=== PATIENT | male | born 1955 | race Caucasian/White ===

== ENCOUNTER 2020-11-20 07:15 | Outpatient (REF) | payer MEDICARE, SELFPAY ==
[2020-11-20 07:46] LABS: MANUAL DIFF FLAG NO
[2020-11-20 07:50] LABS: Basophils Percent Auto 0.5 % (0-2); Eosinophils Absolute Auto 0.2 X10*3/uL (0.0-0.4); Eosinophils Percent Auto 1.8 % (0-4); Hematocrit 45.8 % (42-52); Hemoglobin 15.2 g/dl (14.0-18.0); Imm Gran Abs Auto 0.03 X10*3/uL (0.00-0.03); Imm Gran Pct Auto 0.4 % (0.0-0.4); Lymphocytes Percent Auto 24.1 % (20-40); Mean Corpuscular HGB Conc 33.2 g/dl (31.0-36.0); Mean Corpuscular Hemoglobin 31.1 pg (27.0-33.0); Mean Corpuscular Volume 93.9 fL (80-98); Mean Platelet Volume 10.1 fL (9.4-12.4); Monocytes Absolute Auto 0.7 X10*3/uL (0.1-1.2); Monocytes Percent Auto 8.7 % (2-11); Neutrophils Absolute Auto 5.3 X10*3/uL (2.0-8.3); Neutrophils Percent Auto 64.5 % (45-73); Platelet Count 182 X10*3/uL (160-400); Red Blood Count 4.88 X10*6/uL (4.60-5.80); Red Cell Distribution Width 12.3 % (11.0-16.0); White Blood Count 8.3 X10*3/uL (4.8-10.8)
[2020-11-20 08:12] LABS: Alanine Aminotransferase 27 U/L (0-40); Albumin Level 4.3 g/dL (3.5-5.0); Alkaline Phosphatase 68 U/L (39-117); Anion Gap 12 (12-20); Aspartate Amino Transferase 25 U/L (5-37); Bilirubin Total 1.5 mg/dL (0.0-1.0); Blood Urea Nitrogen 20 mg/dL (9-16); Calcium 8.9 mg/dL (8.4-10.2); Carbon Dioxide 24 mmol/L (22-29); Chloride 107 mmol/L (96-108); Cholesterol 79 mg/dL; Estimated Glomerular Filt Rate > 60; Glucose Fasting 126 mg/dL (60-99); HDL Cholesterol 29 mg/dL; LDL Cholesterol Calculated 39 mg/dl; Potassium 4.3 mmol/l (3.3-5.1); Sodium 139 mmol/L (135-145); Total Protein 6.8 g/dL (6.5-8.0); Triglycerides 58 mg/dL
== END 2020-11-20 07:16 | disposition home or self-care (01) ==
LOC: HO.LAB 07:15
PROVIDERS: PCP Internal Medicine; Visit Provider Internal Medicine
DX: Z00.00 Encounter for general adult medical examination without abnormal findings (principal); E11.9 Type 2 diabetes mellitus without complications
CPT/HCPCS: 36415; 80053; 80061; 85025

== ENCOUNTER 2021-01-28 06:22 | Day surgery (SDC) | payer MEDICARE, SELFPAY ==
[2021-01-21 14:32] VITALS: BMI 31.4
--- NOTE | 2021-01-27 09:45 | HO.ANESPROP2 ---
Documented by User: Desiree Rodriguez 01/27/21 09:48 HPI - Anesthesia Eval Consult details Narrative: 65yo M for Colonoscopy 2018 CA with Stent. Continues on DAPT Routine cardio visit 10/2020. Stable with 6 month f/u. Pt states exercises regularly. CP only with max HR around 120. PMFSH Active Problems Active Problems: All Active Problems (Updated 01/21/21 @ 14:36 by Karen Kaiser) Hyperlipidemia (Acute) Past Medical History Medical History CAD (coronary artery disease) GERD (gastroesophageal reflux disease) HTN (hypertension) Hx of ulcerative colitis Hyperlipidemia Myocardial infarction On anticoagulant therapy On beta audrey at home Peptic ulcer Family History Family History Mother No problems noted. Father No problems noted. Surgical History Surgical History H/O colonoscopy History of esophagogastroduodenoscopy (EGD) History of PTCA Hx of cystoscopy Hx of heart artery stent Social History Social History Alcohol intake: never Smoking Status: Never smoker Use of substances other than those prescribed or required for medical reasons: No Advance Directives Information Provided: No Meds Allergies Allergy/AdvReac Type Severity Reaction Status Date / Time No Known Allergies Allergy Unknown Verified 11/12/20 10:29 Home Medications Medication Instructions Recorded Confirmed Last Taken Type albuterol sulfate 90 mcg/actuation 2 puff PO DAILY 11/12/20 01/21/21 Unknown History aerosol inhaler aspirin 81 mg tablet,delayed 81 mg PO DAILY 11/12/20 01/28/21 01/27/21 History release carvedilol 12.5 mg tablet 12.5 mg PO BID 11/12/20 01/28/21 01/28/21 05:15 History folic acid 1 mg tablet 1 mg PO DAILY 11/12/20 01/21/21 Unknown History isosorbide mononitrate 30 mg 30 mg PO QAM 11/12/20 01/21/21 Unknown History tablet,extended release 24 hr lisinopril 20 mg tablet 20 mg PO DAILY 11/12/20 01/28/21 01/28/21 05:15 History nitroglycerin 0.4 mg sublingual 0.5 mg SUBLINGUAL ONCE PRN 11/12/20 01/21/21 Unknown History tablet pantoprazole 20 mg tablet,delayed 20 mg PO DAILY 11/12/20 01/21/21 Unknown History release prasugrel 10 mg tablet 10 mg PO DAILY 11/12/20 11/12/20 Unknown History sulfasalazine 500 mg tablet 1,000 mg PO BID 11/12/20 01/21/21 Unknown History clopidogrel 1 tab PO DAILY 01/21/21 01/28/21 01/21/21 History Exam Exam Date and Time: January 27, 2021 0945 Height,Weight and Vital Signs: Height 5 ft 8 in Weight 93.894 kg Pertinent Lab Results Pertinent Lab Results: Laboratory Tests 11/20/20 11/20/20 07:35 07:35 WBC 8.3 Hgb 15.2 Hct 45.8 Plt Count 182 Sodium 139 Potassium 4.3 Chloride 107 Carbon Dioxide 24 BUN 20 H Creatinine 1.16 Narrative Narrative: EKG 10/2020 NSR, no T wave abn Assessment and Plan Assessment Anesthesia Assessment: Chart Reviewed Documented by User: Trisha Tay 01/28/21 07:39 [facility] Past Medical History Medical History CAD (coronary artery disease) GERD (gastroesophageal reflux disease) HTN (hypertension) Hx of ulcerative colitis Hyperlipidemia Myocardial infarction On anticoagulant therapy On beta audrey at home Peptic ulcer Family History Family History Mother No problems noted. Father No problems noted. Surgical History Surgical History H/O colonoscopy History of esophagogastroduodenoscopy (EGD) History of PTCA Hx of cystoscopy Hx of heart artery stent Social History Social History Alcohol intake: never Smoking Status: Never smoker Use of substances other than those prescribed or required for medical reasons: No Advance Directives Information Provided: No Meds Allergies Allergy/AdvReac Type Severity Reaction Status Date / Time No Known Allergies Allergy Unknown Verified 11/12/20 10:29 Home Medications Medication Instructions Recorded Confirmed Last Taken Type albuterol sulfate 90 mcg/actuation 2 puff PO DAILY 11/12/20 01/21/21 Unknown History aerosol inhaler aspirin 81 mg tablet,delayed 81 mg PO DAILY 11/12/20 01/28/21 01/27/21 History release carvedilol 12.5 mg tablet 12.5 mg PO BID 11/12/20 01/28/21 01/28/21 05:15 History folic acid 1 mg tablet 1 mg PO DAILY 11/12/20 01/21/21 Unknown History isosorbide mononitrate 30 mg 30 mg PO QAM 11/12/20 01/21/21 Unknown History tablet,extended release 24 hr lisinopril 20 mg tablet 20 mg PO DAILY 11/12/20 01/28/21 01/28/21 05:15 History nitroglycerin 0.4 mg sublingual 0.5 mg SUBLINGUAL ONCE PRN 11/12/20 01/21/21 Unknown History tablet pantoprazole 20 mg tablet,delayed 20 mg PO DAILY 11/12/20 01/21/21 Unknown History release prasugrel 10 mg tablet 10 mg PO DAILY 11/12/20 11/12/20 Unknown History sulfasalazine 500 mg tablet 1,000 mg PO BID 11/12/20 01/21/21 Unknown History clopidogrel 1 tab PO DAILY 01/21/21 01/28/21 01/21/21 History Exam Airway Mallampati Class: II TM Dist: >3cm Neck ROM: Full Loose/Missing/Broken Teeth: No Heart: RRR Lungs: CTA Assessment and Plan Assessment Anesthesia Assessment: Anesthesia Plan Discussed and Chart Reviewed Final Anesthetic Review NPO: Yes ASA Class: III Final Preanesthetic Review: Meds/Allgs Chart Reviewed, Consent Obtained/Reviewed and Anes Risks/Benef Reviewed Patient Risk: Intermediate Procedure Risk: Low Anesthetic Plan Anesthetic Plan: MAC: Disposition: Standard PACU
[2021-01-28 06:38] VITALS: BP 111/68; PULSE 74; RESP 18; O2SAT 95
--- NOTE | 2021-01-28 07:28 | MHC.SHP ---
Pre-Procedural Eval Section A The patient is an INPATIENT: No The History & Physical has been completed within 30 days and I have reviewed it.: Yes Section B Chief Complaint: colitis Allergies: Allergies Allergy/AdvReac Type Severity Reaction Status Date / Time No Known Allergies Allergy Unknown Verified 11/12/20 10:29 Plan I have reviewed the history and physical and performed a pertinent physical examination on my patient. No changes have occurred unless specified.
[2021-01-28] MEDS: Lactated Ringers 1,000 ML 50 ML IV (07:34)
[2021-01-28 08:11] VITALS: BP 97/56; PULSE 67; RESP 20; TEMP 36.5; O2SAT 98
--- NOTE | 2021-01-28 08:16 | PM.OP ---
Brief Operative Note Date of Service: 01/28/21 Pre-op diagnosis: u c Post-op diagnosis: same Surgeon: Mitesh Pierce Anesthesia: MAC Estimated blood loss (mL): 5 Pathology: other (biopsies ti and colon) Condition: stable Disposition: PACU
[2021-01-28 08:25] VITALS: BP 111/69; PULSE 77; RESP 18; O2SAT 95
[2021-01-28 08:33] VITALS: BP 103/61; PULSE 68; RESP 18; O2SAT 96
--- NOTE | 2021-01-28 09:05 | OP_ITS ---
SURGEON: Mitesh Pierce MD INDICATIONS: Ulcerative colitis. PREOPERATIVE DIAGNOSIS: POSTOPERATIVE DIAGNOSIS: PROCEDURE PERFORMED: ESTIMATED BLOOD LOSS: COMPLICATIONS: ANESTHESIA: ASSISTANTS: SPECIMENS: PROCEDURE: Colonoscopy to the terminal ileum with biopsy. MEDICATIONS: Monitored anesthesia care. DESCRIPTION OF PROCEDURE: History and physical performed. The risks and benefits of the procedure were explained to the patient. Informed consent was obtained. The patient was placed in left lateral decubitus position. A digital rectal exam was performed and was found to be normal. The Olympus pediatric video colonoscope was introduced into the rectum and advanced to the cecum without difficulty. The cecum was identified by transillumination, palpation, and identification of ileocecal valve. Examination was performed. The scope was removed. He tolerated the procedure well and was taken to recovery area in stable condition. FINDINGS: The terminal ileum was normal. The visualized colonic mucosa was normal. The quality of prep was good. There appeared to be some mild chronic changes in the rectum consistent with previous ulcerative colitis. There was no active colitis. Biopsies were obtained beginning in the cecum and extending approximately every 10 cm throughout the colon. Retroflexed examination was normal. IMPRESSION: Ulcerative colitis. RECOMMENDATION: Follow up the biopsy results. MD JUDY Barth/TEOFILO / [id number]
== END 2021-01-28 09:20 | disposition home or self-care (01) ==
PROVIDERS: PCP Internal Medicine; Visit Provider Internal Medicine Gastroenterology
PROC: 0DJD8ZZ Inspection of Lower Intestinal Tract, Via Natural or Artificial Opening Endoscopic (ICD-10-PCS; CPT 45378; principal; 2021-01-28 07:30)
DX: K51.80 Other ulcerative colitis without complications (principal); Z83.71 Family history of colonic polyps; K21.9 Gastro-esophageal reflux disease without esophagitis; K27.9 Peptic ulcer, site unspecified, unspecified as acute or chronic, without hemorrhage or perforation; I10 Essential (primary) hypertension; I25.10 Atherosclerotic heart disease of native coronary artery without angina pectoris; Z98.61 Coronary angioplasty status; Z79.01 Long term (current) use of anticoagulants; Z79.899 Other long term (current) drug therapy; Z79.82 Long term (current) use of aspirin; Z87.442 Personal history of urinary calculi
CPT/HCPCS: 45380; 88305; J2370

== ENCOUNTER 2021-05-13 07:45 | Outpatient (REF) | payer MEDICARE, SELFPAY ==
[2021-05-13 08:45] LABS: Alanine Aminotransferase 19 U/L (0-40); Albumin Level 4.3 g/dL (3.5-5.0); Alkaline Phosphatase 76 U/L (39-117); Anion Gap 13 (12-20); Aspartate Amino Transferase 19 U/L (5-37); Bilirubin Total 1.7 mg/dL (0.0-1.0); Blood Urea Nitrogen 17 mg/dL (9-16); Calcium 9.7 mg/dL (8.4-10.2); Carbon Dioxide 25 mmol/L (22-29); Chloride 105 mmol/L (96-108); Estimated Glomerular Filt Rate 59; Glucose Fasting 120 mg/dL (60-99); Potassium 4.1 mmol/L (3.3-5.1); Sodium 139 mmol/L (135-145); Total Protein 7.1 g/dL (6.5-8.0)
[2021-05-13 09:07] LABS: Prostate Specific Antigen 0.43 ng/mL (<0.05-4.0)
== END 2021-05-13 07:46 | disposition home or self-care (01) ==
LOC: HO.LAB 07:45
PROVIDERS: Absent Provider Internal Medicine Cardiovascular Disease; PCP Internal Medicine; Visit Provider Nurse Practitioner Family
DX: Z12.5 Encounter for screening for malignant neoplasm of prostate (principal); Z13.1 Encounter for screening for diabetes mellitus
CPT/HCPCS: 36415; 80053; 84153

== ENCOUNTER 2021-11-09 09:06 | Outpatient (REF) | payer MEDICARE, SELFPAY ==
[2021-11-09 09:21] LABS: MANUAL DIFF FLAG NO
[2021-11-09 09:35] LABS: Basophils Percent Auto 0.5 % (0-2); Eosinophils Absolute Auto 0.1 X10*3/uL (0.0-0.4); Eosinophils Percent Auto 1.3 % (0-4); Hematocrit 49.3 % (42.0-52.0); Hemoglobin 16.5 g/dl (14.0-18.0); Imm Gran Abs Auto 0.04 X10*3/uL (0.00-0.03); Imm Gran Pct Auto 0.5 % (0.0-0.4); Lymphocytes Absolute Auto 2.1 X10*3/uL (1.2-4.9); Lymphocytes Percent Auto 25.3 % (20-40); Mean Corpuscular HGB Conc 33.5 g/dl (31.0-36.0); Mean Corpuscular Hemoglobin 31.3 pg (27.0-33.0); Mean Corpuscular Volume 93.4 fL (80.0-98.0); Mean Platelet Volume 9.8 fL (9.4-12.4); Monocytes Absolute Auto 0.6 X10*3/uL (0.1-1.2); Monocytes Percent Auto 7.6 % (2-11); Neutrophils Absolute Auto 5.3 x10*3/uL (2.0-8.3); Neutrophils Percent Auto 64.8 % (45-73); Platelet Count 225 X10*3/uL (160-400); Red Blood Count 5.28 X10*6/uL (4.60-5.80); Red Cell Distribution Width 12.5 % (11.0-16.0); White Blood Count 8.3 X10*3/uL (4.8-10.8)
[2021-11-09 10:02] LABS: Alanine Aminotransferase 31 U/L (0-40); Albumin Level 4.5 g/dL (3.5-5.0); Alkaline Phosphatase 74 U/L (39-117); Anion Gap 11 (12-20); Aspartate Amino Transferase 27 U/L (5-37); Bilirubin Total 1.6 mg/dL (0.0-1.0); Blood Urea Nitrogen 18 mg/dL (9-16); Calcium 9.9 mg/dL (8.4-10.2); Carbon Dioxide 27 mmol/L (22-29); Chloride 106 mmol/L (96-108); Cholesterol 104 mg/dL; Estimated Glomerular Filt Rate > 60; Glucose Fasting 115 mg/dL (60-99); HDL Cholesterol 31 mg/dL; LDL Cholesterol Calculated 54 mg/dl; Potassium 4.3 mmol/L (3.3-5.1); Sodium 140 mmol/L (135-145); Total Protein 7.6 g/dL (6.5-8.0); Triglycerides 96 mg/dL
== END 2021-11-09 09:07 | disposition home or self-care (01) ==
LOC: HO.LAB 09:06
PROVIDERS: PCP Internal Medicine; Visit Provider Internal Medicine
DX: Z00.00 Encounter for general adult medical examination without abnormal findings (principal); Z13.0 Encounter for screening for diseases of the blood and blood-forming organs and certain disorders involving the immune mechanism
CPT/HCPCS: 36415; 80053; 80061; 85025

== ENCOUNTER 2022-06-06 08:29 | Outpatient (REF) | payer MEDICARE, SELFPAY ==
[2022-06-06 08:45] LABS: MANUAL DIFF FLAG NO
[2022-06-06 09:01] LABS: Basophils Absolute Auto 0.1 X10*3/uL (0.0-0.2); Basophils Percent Auto 0.6 % (0-2); Eosinophils Absolute Auto 0.1 X10*3/uL (0.0-0.4); Eosinophils Percent Auto 0.9 % (0-4); Hematocrit 45.6 % (42.0-52.0); Hemoglobin 15.1 g/dl (14.0-18.0); Imm Gran Abs Auto 0.05 X10*3/uL (0.00-0.03); Imm Gran Pct Auto 0.6 % (0.0-0.4); Lymphocytes Absolute Auto 1.8 X10*3/uL (1.2-4.9); Lymphocytes Percent Auto 22.3 % (20-40); Mean Corpuscular HGB Conc 33.1 g/dl (31.0-36.0); Mean Corpuscular Hemoglobin 31.4 pg (27.0-33.0); Mean Corpuscular Volume 94.8 fL (80.0-98.0); Mean Platelet Volume 10.1 fL (9.4-12.4); Monocytes Absolute Auto 0.7 X10*3/uL (0.1-1.2); Monocytes Percent Auto 8.4 % (2-11); Neutrophils Absolute Auto 5.3 x10*3/uL (2.0-8.3); Neutrophils Percent Auto 67.2 % (45-73); Platelet Count 222 X10*3/uL (160-400); Red Blood Count 4.81 X10*6/uL (4.60-5.80); Red Cell Distribution Width 13.3 % (11.0-16.0); White Blood Count 7.9 X10*3/uL (4.8-10.8)
[2022-06-06 09:32] LABS: Alanine Aminotransferase 43 U/L (0-40); Albumin Level 4.4 g/dL (3.5-5.0); Alkaline Phosphatase 76 U/L (39-117); Anion Gap 15 (12-20); Aspartate Amino Transferase 35 U/L (5-37); Bilirubin Total 1.7 mg/dL (0.0-1.0); Blood Urea Nitrogen 17 mg/dL (9-16); Calcium 9.1 mg/dL (8.4-10.2); Carbon Dioxide 22 mmol/L (22-29); Chloride 105 mmol/L (96-108); Cholesterol 92 mg/dL; Estimated Glomerular Filt Rate > 60; Glucose Fasting 117 mg/dL (60-99); HDL Cholesterol 30 mg/dL; LDL Cholesterol Calculated 48 mg/dl; Potassium 4.4 mmol/L (3.3-5.1); Sodium 138 mmol/L (135-145); Triglycerides 71 mg/dL
== END 2022-06-06 08:30 | disposition home or self-care (01) ==
LOC: HO.LAB 08:29
PROVIDERS: PCP Internal Medicine; Visit Provider Internal Medicine
DX: Z13.0 Encounter for screening for diseases of the blood and blood-forming organs and certain disorders involving the immune mechanism (principal); E78.5 Hyperlipidemia, unspecified; I10 Essential (primary) hypertension
CPT/HCPCS: 36415; 80053; 80061; 85025

== ENCOUNTER 2022-11-08 09:02 | Outpatient (REF) | payer MEDICARE, SELFPAY ==
[2022-11-08 09:17] LABS: MANUAL DIFF FLAG NO
[2022-11-08 09:45] LABS: Basophils Absolute Auto 0.1 X10*3/uL (0.0-0.2); Basophils Percent Auto 0.6 % (0-2); Eosinophils Absolute Auto 0.1 X10*3/uL (0.0-0.4); Eosinophils Percent Auto 1.6 % (0-4); Hematocrit 47.1 % (42.0-52.0); Hemoglobin 15.6 g/dl (14.0-18.0); Imm Gran Abs Auto 0.05 X10*3/uL (0.00-0.03); Imm Gran Pct Auto 0.6 % (0.0-0.4); Lymphocytes Absolute Auto 2.2 X10*3/uL (1.2-4.9); Mean Corpuscular HGB Conc 33.1 g/dl (31.0-36.0); Mean Corpuscular Hemoglobin 31.1 pg (27.0-33.0); Mean Corpuscular Volume 93.8 fL (80.0-98.0); Mean Platelet Volume 10.2 fL (9.4-12.4); Monocytes Absolute Auto 0.8 X10*3/uL (0.1-1.2); Monocytes Percent Auto 8.9 % (2-11); Neutrophils Absolute Auto 5.6 x10*3/uL (2.0-8.3); Neutrophils Percent Auto 63.3 % (45-73); Platelet Count 181 X10*3/uL (160-400); Red Blood Count 5.02 X10*6/uL (4.60-5.80); Red Cell Distribution Width 12.9 % (11.0-16.0); White Blood Count 8.8 X10*3/uL (4.8-10.8)
[2022-11-08 10:07] LABS: Alanine Aminotransferase 29 U/L (0-40); Albumin Level 4.3 g/dL (3.5-5.0); Alkaline Phosphatase 76 U/L (39-117); Anion Gap 8 (12-20); Aspartate Amino Transferase 25 U/L (5-37); Bilirubin Total 1.8 mg/dL (0.0-1.0); Blood Urea Nitrogen 22 mg/dL (9-16); Calcium 9.3 mg/dL (8.4-10.2); Carbon Dioxide 27 mmol/L (22-29); Chloride 106 mmol/L (96-108); Cholesterol 111 mg/dL; Estimated Glomerular Filt Rate > 60; Glucose Fasting 108 mg/dL (60-99); HDL Cholesterol 31 mg/dL; LDL Cholesterol Calculated 62 mg/dl; Potassium 4.3 mmol/L (3.3-5.1); Sodium 137 mmol/L (135-145); Total Protein 6.9 g/dL (6.5-8.0); Triglycerides 93 mg/dL
== END 2022-11-08 09:03 | disposition home or self-care (01) ==
LOC: HO.LAB 09:02
PROVIDERS: PCP Internal Medicine; Visit Provider Internal Medicine
DX: N28.9 Disorder of kidney and ureter, unspecified (principal); D64.9 Anemia, unspecified; E78.5 Hyperlipidemia, unspecified
CPT/HCPCS: 36415; 80053; 80061; 85025

== ENCOUNTER 2023-05-16 08:35 | Outpatient (AMB) | payer MEDICARE, SELFPAY ==
[2023-05-16 08:36] VITALS: BP 112/80; PULSE 71; O2SAT 96; BMI 31.9
--- NOTE | 2023-05-16 08:36 | A.OFFPC_ITS ---
Vital Signs 05/16/23 08:36 Height 5 ft 8 in Weight 210 lb BMI 31.9 BP 112/80 Blood Pressure Location Lt brachial Position Sitting Pulse 71 Pulse Source Pulse Oximeter Pulse Oximetry (%) 96 Oxygen Delivery Method Room Air Intake Visit Reasons: 6mth f/u [employer] Cartoonist Required: No Accompanied by: Self / Same As Patient Allergies No Known Allergies Allergy (Unknown, Verified 05/16/23 08:37) Medication List - Last Reconciled 05/16/23 by Eric Arita MD albuterol sulfate 90 mcg/actuation 2 puffs PO DAILY aspirin 81 mg PO DAILY atorvastatin 80 mg PO DAILY benzonatate 100 mg PO TID PRN carvedilol 12.5 mg PO BID clopidogrel 1 tab PO DAILY folic acid 1 mg PO DAILY isosorbide mononitrate ER 30 mg PO QAM lisinopril 20 mg PO DAILY nitroglycerin 0.5 mg sublingual ONCE PRN pantoprazole 20 mg PO DAILY sulfasalazine 1,000 mg PO BID Tobacco use date assessed: 05/16/23 Fall risk assessment: No Falls in past year Last assessed Fall Risk: 05/16/23 Dental Screening Dental Screen Date: 05/16/23 Did you have a dental visit in the last 12 months?: Yes Did you have a dental problem in the last 6 months where you did not have access to dental care?: No Was dental information given to patient?: Patient has dentist HPI 6mth f/u HPI Details HTN CAD and hyperlipidemia; doing well; compliant [facility] Medical History (Updated 11/08/22 @ 08:57 by Eric Arita MD) CAD (coronary artery disease) Chronic pain of both feet GERD (gastroesophageal reflux disease) HTN (hypertension) Hx of ulcerative colitis Hyperlipidemia Myocardial infarction On anticoagulant therapy On beta audrey at home Peptic ulcer Screening for diabetes mellitus Screening for prostate cancer Surgical History H/O colonoscopy History of esophagogastroduodenoscopy (EGD) History of PTCA Hx of cystoscopy Hx of heart artery stent Family History Mother No problems noted. Father No problems noted. Social History Housing: House Alcohol intake: never Patient Tobacco Use Status: Never used Tobacco e-Cigarette/Vaping Use: Never Used Second Hand Smoke Exposure: No Current occupational status: retired Cognitive needs: No Hearing needs: No Vision needs: No Questionnaire PHQ-9 Over the last 2 weeks, how often have you been bothered by any of the following problems? 1. Little interest or pleasure in doing things: not at all 2. Feeling down, depressed, or hopeless: not at all 3. Trouble falling or staying asleep, or sleeping too much: not at all 4. Feeling tired or having little energy: not at all 5. Poor appetite or overeating: not at all 6. Feeling bad about yourself - or that you are a failure or have let yourself or your family down: not at all 7. Trouble concentrating on things, such as reading the newspaper or watching television: not at all 8. Moving or speaking so slowly that other people could have noticed. Or the opposite - being so fidgety or restless that you have been moving around a lot more than usual: not at all 9. Thoughts that you would be better off or of hurting yourself in some way: not at all Total score: 0 Depression Screening Interpretation: Negative 30802 - PHQ-9 Billing: Yes Source: Developed by Drs. Aman Forde, Adelina Porter, Tyler Garvey and colleagues, with an educational lorena from [employer]. Thrive Questionnaire Date Thrive assessed: 05/16/23 I am a: Patient What is your living situation today?: I have a steady place to live Within the past 12 months, did the food you bought not last and you didn't have the money to get more?: Never true Within the past 12 months, did you worry whether your food would run out before you got money to buy more?: Never true Do you have trouble paying for medicines?: No Do you have trouble getting transportation to medical appointments?: No Do you have trouble paying your heating and electricity bill?: No Do you have trouble taking care of your child, family member or friend?: No Do you have trouble with day-to-day activities such as bathing, preparing meals, shopping, managing finances, etc.?: No Are you currently unemployed and looking for a job?: No Are you interested in more education?: No Please select the resources that you would like help with: None Currently or been in a relationship where the following occur: no concerns reported AUDIT C Alcohol Use Questionnaire (AUDIT-C) 1. How often do you have a drink containing alcohol?: Monthly or less 2. How many drinks containing alcohol do you have on a typical day when you are drinking?: 1 or 2 3. How often do you have six or more drinks on one occasion?: Never Total Score: 1 Score Reviewed/Action Taken: Yes MANSOOR-7 AMB Questionnaire MANSOOR-7 Date MANSOOR - 7 assessed: 05/16/23 Feeling nervous, anxious, or on edge: 0 = Not at all Not being able to stop or control worryin = Not at all Worrying too much about different things: 0 = Not at all Trouble relaxin = Not at all Being so restless that it is hard to sit still: 0 = Not at all Becoming easily annoyed or irritable: 0 = Not at all Feeling afraid as if something awful might happen: 0 = Not at all Total MANSOOR-7 score (0-4 normal; 5-9 mild; 10-14 moderate; 15-21 severe): 0 Source: Developed by Drs. Aman Forde, Adelina Porter, Tyler Garvey and colleagues, with an educational lorena from [employer]. MANSOOR-7 Assessment Billing MANSOOR-7 Assessment Tool: MANSOOR-7 Assessment 49398 Review of Systems Const Denies chills, Denies headache(s) and Denies weight loss ENT Denies headache(s) Card Denies chest pain, Denies syncope, Denies irregular heart rhythm and Denies dyspnea Resp Denies chest congestion, Denies cough and Denies dyspnea GI Denies abdominal pain, Denies change in stool character, Denies nausea and Denies vomiting Musc Denies deformity and Denies joint swelling Neuro Denies syncope and Denies headache(s) Physical exam (Primary Care) Vital Signs: Last Vital Signs Pulse 71 05/16/23 08:36 BP 112/80 05/16/23 08:36 Pulse Ox 96 05/16/23 08:36 Oxygen Delivery Method Room Air 05/16/23 08:36 BMI result Body Mass Index 31.9 Tobacco/Smoking Status: Tobacco use Status Tobacco use date assessed 05/16/23 05/16/23 08:41 Patient Tobacco Use Status Never used Tobacco 05/16/23 08:41 e-Cigarette/Vaping Use Never Used 05/16/23 08:41 PHQ-9: PHQ-9 Score PHQ-9: Total score 0 05/16/23 08:41 Depression Screening Interpretation: Negative Thrive Assessment: Date of Thrive Assessment Date Thrive assessed 05/16/23 05/16/23 08:41 Currently or been in a relationship where the following occur: no concerns reported Const General: cooperative, comfortable and no acute distress Resp Effort & Inspection: normal respiratory effort Auscultation: clear to auscultation bilaterally Percussion: percussion normal Cardio Jugular venous distension: no JVD Rate: regular rate Rhythm: regular rhythm GI Inspection: Yes normal to inspection Assessment and Plan Assessment & Plan (1) CAD (coronary artery disease): Code(s): I25.10 - Atherosclerotic heart disease of [place] coronary artery without angina pectoris Plan: stable; seescardiology (2) Hypertension: Code(s): I10 - Essential (primary) hypertension Plan: stable; same rx (3) Hyperlipidemia: Code(s): E78.5 - Hyperlipidemia, unspecified Qualifiers: Hyperlipidemia type: unspecified Qualified Code(s): E78.5 - Hyperlipidemia, unspecified Plan: stable; do labs Orders: Orders Comprehensive [place]. Panel Fast Today N28.9 - Disorder of kidney and ureter, unspecified Lipid Panel Today E78.5 - Hyperlipidemia, unspecified Complete Blood Count Auto Diff Today D64.9 - Anemia, unspecified Coding Level of Care Code Est Pt Level 4 (89158) Diagnoses CAD (coronary artery disease) I25.10 Hypertension I10 Hyperlipidemia E78.5 Hyperlipidemia type: unspecified Additional Codes MANSOOR-7 Assessment Billing - MANSOOR-7 Assessment Tool: MANSOOR-7 Assessment 17875 ([id number])
== END 2023-05-16 08:55 | disposition home or self-care (01) ==
PROVIDERS: PCP Internal Medicine; Visit Provider Internal Medicine
DX: I25.10 Atherosclerotic heart disease of native coronary artery without angina pectoris (principal); I10 Essential (primary) hypertension; E78.5 Hyperlipidemia, unspecified
CPT/HCPCS: 99214

== ENCOUNTER 2023-05-16 09:19 | Outpatient (REF) | payer MEDICARE, SELFPAY ==
[2023-05-16 09:41] LABS: MANUAL DIFF FLAG NO
[2023-05-16 10:44] LABS: Basophils Absolute Auto 0.1 X10*3/uL (0.0-0.2); Basophils Percent Auto 0.8 % (0-2); Eosinophils Absolute Auto 0.2 X10*3/uL (0.0-0.4); Hematocrit 47.2 % (42.0-52.0); Hemoglobin 15.6 g/dl (14.0-18.0); Imm Gran Abs Auto 0.04 X10*3/uL (0.00-0.03); Imm Gran Pct Auto 0.5 % (0.0-0.4); Lymphocytes Percent Auto 26.4 % (20-40); Mean Corpuscular HGB Conc 33.1 g/dl (31.0-36.0); Mean Corpuscular Hemoglobin 30.6 pg (27.0-33.0); Mean Corpuscular Volume 92.5 fL (80.0-98.0); Mean Platelet Volume 10.2 fL (9.4-12.4); Monocytes Absolute Auto 0.6 X10*3/uL (0.1-1.2); Monocytes Percent Auto 8.1 % (2-11); Neutrophils Absolute Auto 4.7 x10*3/uL (2.0-8.3); Neutrophils Percent Auto 62.2 % (45-73); Platelet Count 200 X10*3/uL (160-400); Red Cell Distribution Width 12.5 % (11.0-16.0); White Blood Count 7.5 X10*3/uL (4.8-10.8)
[2023-05-16 11:24] LABS: Alanine Aminotransferase 30 U/L (0-40); Albumin Level 4.2 g/dL (3.5-5.0); Alkaline Phosphatase 73 U/L (39-117); Anion Gap 14 (12-20); Aspartate Amino Transferase 26 U/L (5-37); Bilirubin Total 1.9 mg/dL (0.0-1.0); Blood Urea Nitrogen 21 mg/dL (9-16); Calcium 9.4 mg/dL (8.4-10.2); Carbon Dioxide 23 mmol/L (22-29); Chloride 106 mmol/L (96-108); Cholesterol 108 mg/dL; Estimated Glomerular Filt Rate > 60; Glucose Fasting 107 mg/dL (60-99); HDL Cholesterol 32 mg/dL; LDL Cholesterol Calculated 57 mg/dl; Potassium 4.1 mmol/L (3.3-5.1); Sodium 139 mmol/L (135-145); Triglycerides 97 mg/dL
== END 2023-05-16 09:20 | disposition home or self-care (01) ==
LOC: HO.LAB 09:19
PROVIDERS: PCP Internal Medicine; Visit Provider Internal Medicine
DX: N28.9 Disorder of kidney and ureter, unspecified (principal); D64.9 Anemia, unspecified; E78.5 Hyperlipidemia, unspecified
CPT/HCPCS: 36415; 80053; 80061; 85025

== ENCOUNTER 2023-11-21 08:31 | Outpatient (AMB) | payer MEDICARE, SELFPAY ==
[2023-11-21 08:33] VITALS: BP 134/66; PULSE 70; O2SAT 96; BMI 31.5
--- NOTE | 2023-11-21 08:33 | MHC.PC.OV ---
Vital Signs 11/21/23 08:33 Height 5 ft 8 in Weight 207 lb BMI 31.5 BP 134/66 Blood Pressure Location Lt brachial Position Sitting Pulse 70 Pulse Source Pulse Oximeter Pulse Oximetry (%) 96 Oxygen Delivery Method Room Air Intake Visit Reasons: 6mth f/u Laboratory Equipment Cleaner Required: No Gravity Prospecting Operator: Not Required per policy Accompanied by: Self / Same As Patient Allergies No Known Allergies Allergy (Unknown, Verified 11/21/23 08:33) Medication List - Last Reconciled 11/21/23 by Eric Arita MD albuterol sulfate 90 mcg/actuation 2 puffs PO DAILY aspirin 81 mg PO DAILY atorvastatin 80 mg PO DAILY benzonatate 100 mg PO TID PRN carvedilol 25 mg PO BID clopidogrel 1 tab PO DAILY folic acid 1 mg PO DAILY isosorbide mononitrate ER 30 mg PO QAM lisinopril 2.5 mg PO DAILY nitroglycerin 0.5 mg sublingual ONCE PRN pantoprazole 20 mg PO DAILY sulfasalazine 1,000 mg PO BID Tobacco use date assessed: 11/21/23 Fall risk assessment: No Falls in past year Last assessed Fall Risk: 11/21/23 Dental Screening Dental Screen Date: 11/21/23 Did you have a dental visit in the last 12 months?: Yes Did you have a dental problem in the last 6 months where you did not have access to dental care?: No Was dental information given to patient?: Patient has dentist HPI 6mth f/u HPI Details CAD hyperlipidemia and HTN; doing well; compliant; sees cardiology and doing well [facility] Medical History (Updated 11/08/22 @ 08:57 by Eric Arita MD) Chronic pain of both feet Screening for prostate cancer Screening for diabetes mellitus Hx of ulcerative colitis Peptic ulcer GERD (gastroesophageal reflux disease) On beta audrey at home On anticoagulant therapy Myocardial infarction CAD (coronary artery disease) HTN (hypertension) Hyperlipidemia Surgical History Hx of cystoscopy Hx of heart artery stent History of esophagogastroduodenoscopy (EGD) H/O colonoscopy History of PTCA Family History Mother No problems noted. Father No problems noted. Social History Housing: House Alcohol intake: never Patient Tobacco Use Status: Never used Tobacco e-Cigarette/Vaping Use: Never Used Second Hand Smoke Exposure: No Current occupational status: retired Cognitive needs: No Hearing needs: No Vision needs: Yes Questionnaire PHQ-9 Over the last 2 weeks, how often have you been bothered by any of the following problems? 1. Little interest or pleasure in doing things: not at all 2. Feeling down, depressed, or hopeless: not at all 3. Trouble falling or staying asleep, or sleeping too much: not at all 4. Feeling tired or having little energy: not at all 5. Poor appetite or overeating: not at all 6. Feeling bad about yourself - or that you are a failure or have let yourself or your family down: not at all 7. Trouble concentrating on things, such as reading the newspaper or watching television: not at all 8. Moving or speaking so slowly that other people could have noticed. Or the opposite - being so fidgety or restless that you have been moving around a lot more than usual: not at all 9. Thoughts that you would be better off or of hurting yourself in some way: not at all Total score: 0 Depression Screening Interpretation: Negative Depression Screening Done: Yes 70014 - PHQ-9 Billing: Yes Source: Developed by Drs. Aman Forde, Adelina Porter, Tyler Garvey and colleagues, with an educational lorena from [employer]. Thrive Questionnaire Date Thrive assessed: 11/21/23 I am a: Patient What is your living situation today?: I have a steady place to live Within the past 12 months, did the food you bought not last and you didn't have the money to get more?: Never true Within the past 12 months, did you worry whether your food would run out before you got money to buy more?: Never true Do you have trouble paying for medicines?: No Do you have trouble getting transportation to medical appointments?: No Do you have trouble paying your heating and electricity bill?: No Do you have trouble taking care of your child, family member or friend?: No Do you have trouble with day-to-day activities such as bathing, preparing meals, shopping, managing finances, etc.?: No Are you currently unemployed and looking for a job?: No Are you interested in more education?: No Please select the resources that you would like help with: None AUDIT C Alcohol Use Questionnaire (AUDIT-C) 1. How often do you have a drink containing alcohol?: Monthly or less 2. How many drinks containing alcohol do you have on a typical day when you are drinking?: 1 or 2 3. How often do you have six or more drinks on one occasion?: Never Total Score: 1 Score Reviewed/Action Taken: Yes MANSOOR-7 AMB Questionnaire MANSOOR-7 Date MANSOOR - 7 assessed: 11/21/23 Feeling nervous, anxious, or on edge: 0 = Not at all Not being able to stop or control worryin = Not at all Worrying too much about different things: 0 = Not at all Trouble relaxin = Not at all Being so restless that it is hard to sit still: 0 = Not at all Becoming easily annoyed or irritable: 0 = Not at all Feeling afraid as if something awful might happen: 0 = Not at all Total MANSOOR-7 score (0-4 normal; 5-9 mild; 10-14 moderate; 15-21 severe): 0 Source: Developed by Drs. Aman Forde, Adelina Porter, Tyler Garvey and colleagues, with an educational lorena from [employer]. MANSOOR-7 Assessment Billing MANSOOR-7 Assessment Tool: MANSOOR-7 Assessment 99794 Review of Systems Const Denies chills, Denies headache(s) and Denies weight loss ENT Denies headache(s) Card Denies chest pain, Denies syncope, Denies irregular heart rhythm and Denies dyspnea Resp Denies chest congestion, Denies cough and Denies dyspnea GI Denies abdominal pain, Denies change in stool character, Denies nausea and Denies vomiting Musc Denies deformity and Denies joint swelling Neuro Denies syncope and Denies headache(s) Physical exam (Primary Care) Vital Signs: Last Vital Signs Pulse 70 11/21/23 08:33 BP 134/66 11/21/23 08:33 Pulse Ox 96 11/21/23 08:33 Oxygen Delivery Method Room Air 11/21/23 08:33 BMI result Body Mass Index 31.5 Tobacco/Smoking Status: Tobacco use Status Tobacco use date assessed 11/21/23 11/21/23 08:39 Patient Tobacco Use Status Never used Tobacco 11/21/23 08:39 e-Cigarette/Vaping Use Never Used 11/21/23 08:39 PHQ-9: PHQ-9 Score PHQ-9: Total score 0 11/21/23 08:39 Depression Screening Interpretation: Negative Thrive Assessment: Date of Thrive Assessment Date Thrive assessed 11/21/23 11/21/23 08:39 Const General: cooperative, comfortable, no acute distress and alert Neck Neck: Yes no lymphadenopathy Thyroid: Thyroid normal Resp Effort & Inspection: normal respiratory effort Auscultation: clear to auscultation bilaterally Percussion: percussion normal Cardio Jugular venous distension: no JVD Palpation: normal PMI Rate: regular rate Rhythm: regular rhythm Heart sounds: S1 normal heart sound present and S2 normal heart sound present GI Inspection: Yes normal to inspection Palpation (GI): No hepatosplenomegaly present Skin General skin exam: no rashes or lesions noted Extrem General: Yes no clubbing, cyanosis or edema Assessment and Plan Assessment & Plan (1) CAD (coronary artery disease): Code(s): I25.10 - Atherosclerotic heart disease of [place] coronary artery without angina pectoris Plan: stable; as per cardiology (2) Hypertension: Code(s): I10 - Essential (primary) hypertension Plan: stable; same rx (3) Hyperlipidemia: Code(s): E78.5 - Hyperlipidemia, unspecified Qualifiers: Hyperlipidemia type: unspecified Qualified Code(s): E78.5 - Hyperlipidemia, unspecified Plan: stable; same rx Orders: Orders Lipid Panel Today E78.5 - Hyperlipidemia, unspecified Comprehensive [place]. Panel Fast Today N28.9 - Disorder of kidney and ureter, unspecified Prostate Specific Antigen Scr Today Z00.00 - Encounter for general adult medical examination without abnormal findings Complete Blood Count Auto Diff Today D64.9 - Anemia, unspecified Coding Level of Care Code Est Pt Level 4 (94809) Diagnoses CAD (coronary artery disease) I25.10 Hypertension I10 Hyperlipidemia, unspecified hyperlipidemia type E78.5 Hyperlipidemia type: unspecified Additional Codes MANSOOR-7 Assessment Billing - MANSOOR-7 Assessment Tool: MANSOOR-7 Assessment 61979 ([id number])
== END 2023-11-21 08:47 | disposition home or self-care (01) ==
PROVIDERS: PCP Internal Medicine; Visit Provider Internal Medicine
DX: I25.10 Atherosclerotic heart disease of native coronary artery without angina pectoris (principal); I10 Essential (primary) hypertension; E78.5 Hyperlipidemia, unspecified
CPT/HCPCS: 99214

== ENCOUNTER 2023-11-21 08:53 | Outpatient (REF) | payer MEDICARE, SELFPAY ==
[2023-11-21 09:14] LABS: MANUAL DIFF FLAG NO
[2023-11-21 09:33] LABS: Basophils Percent Auto 0.6 % (0-2); Eosinophils Absolute Auto 0.2 X10*3/uL (0.0-0.4); Eosinophils Percent Auto 2.5 % (0-4); Hematocrit 45.7 % (42.0-52.0); Hemoglobin 15.4 g/dl (14.0-18.0); Imm Gran Abs Auto 0.03 X10*3/uL (0.00-0.03); Imm Gran Pct Auto 0.4 % (0.0-0.4); Lymphocytes Absolute Auto 1.8 X10*3/uL (1.2-4.9); Mean Corpuscular HGB Conc 33.7 g/dl (31.0-36.0); Mean Corpuscular Hemoglobin 31.6 pg (27.0-33.0); Mean Corpuscular Volume 93.6 fL (80.0-98.0); Mean Platelet Volume 9.7 fL (9.4-12.4); Monocytes Absolute Auto 0.6 X10*3/uL (0.1-1.2); Monocytes Percent Auto 8.9 % (2-11); Neutrophils Absolute Auto 4.5 x10*3/uL (2.0-8.3); Neutrophils Percent Auto 62.6 % (45-73); Platelet Count 175 X10*3/uL (160-400); Red Blood Count 4.88 X10*6/uL (4.60-5.80); White Blood Count 7.2 X10*3/uL (4.8-10.8)
[2023-11-21 10:04] LABS: Alanine Aminotransferase 36 U/L (0-40); Albumin Level 4.3 g/dL (3.5-5.0); Alkaline Phosphatase 75 U/L (39-117); Anion Gap 11 (12-20); Aspartate Amino Transferase 27 U/L (5-37); Bilirubin Total 1.5 mg/dL (0.0-1.0); Blood Urea Nitrogen 17 mg/dL (9-16); Calcium 9.3 mg/dL (8.4-10.2); Carbon Dioxide 27 mmol/L (22-29); Chloride 106 mmol/L (96-108); Cholesterol 94 mg/dL (<200); Estimated Glomerular Filt Rate > 60; Glucose Fasting 114 mg/dL (60-99); HDL Cholesterol 31 mg/dL (>40); LDL Cholesterol Calculated 49 mg/dL (<100); Potassium 3.9 mmol/L (3.3-5.1); Sodium 140 mmol/L (135-145); Total Protein 7.3 g/dL (6.5-8.0); Triglycerides 73 mg/dL (<150)
[2023-11-21 10:23] LABS: Prostate Specific Antigen Scr 0.84 ng/mL (<0.05-4.0)
== END 2023-11-21 08:54 | disposition home or self-care (01) ==
LOC: HO.LAB 08:53
PROVIDERS: PCP Internal Medicine; Visit Provider Internal Medicine
DX: Z00.00 Encounter for general adult medical examination without abnormal findings (principal); E78.5 Hyperlipidemia, unspecified; N28.9 Disorder of kidney and ureter, unspecified; D64.9 Anemia, unspecified; Z12.5 Encounter for screening for malignant neoplasm of prostate
CPT/HCPCS: 36415; 80053; 80061; 84153; 85025

== ENCOUNTER 2024-04-29 08:14 | Day surgery (SDC) | payer MEDICARE, SELFPAY ==
--- NOTE | 2024-04-28 12:10 | P.CONAN_ITS ---
Documented by User: Desiree Rodriguez NP 04/28/24 12:14 HPI - Anesthesia Eval Consult details Narrative: 68yo M for Colonoscopy CAD s/p [place] 2018 with stent x 2. Remains on asa/plavix Follows [facility]. Stable at 09/2023 office visit. [facility] Active Problems Active Problems: All Active Problems CAD (coronary artery disease) (Acute) Hypertension (Acute) Adult general medical exam (Acute) Chronic pain of both feet (Acute) Screening for prostate cancer (Acute) Screening for diabetes mellitus (Acute) Hyperlipidemia (Acute) Past Medical History Medical History Asthma Chronic pain of both feet Screening for prostate cancer Screening for diabetes mellitus Hx of ulcerative colitis Peptic ulcer GERD (gastroesophageal reflux disease) On beta aurdey at home On anticoagulant therapy Myocardial infarction CAD (coronary artery disease) HTN (hypertension) Hyperlipidemia Family History Family History Mother No problems noted. Father No problems noted. Surgical History Surgical History Hx of cystoscopy Hx of heart artery stent History of esophagogastroduodenoscopy (EGD) H/O colonoscopy History of PTCA Social History Social History Housing: House Alcohol intake: never Patient Tobacco Use Status: Never used Tobacco e-Cigarette/Vaping Use: Never Used Second Hand Smoke Exposure: No Are you DNR?: No Advance Directives: No Advance Directives Information Provided: Yes Nutrition Risks: No Nutritional Risk Current occupational status: retired Cognitive needs: No Hearing needs: No Vision needs: Yes Meds Allergies Allergy/AdvReac Type Severity Reaction Status Date / Time No Known Allergies Allergy Unknown Verified 11/21/23 08:33 Home Medications ?Medication ?Instructions ?Recorded ?Confirmed ?Last Taken ?Type albuterol sulfate 90 mcg/actuation 2 puff PO DAILY 11/12/20 11/21/23 Unknown History aerosol inhaler aspirin 81 mg tablet,delayed 81 mg PO DAILY 11/12/20 11/21/23 04/21/24 History release folic acid 1 mg tablet 1 mg PO DAILY 11/12/20 11/21/23 Unknown History isosorbide mononitrate 30 mg 30 mg PO QAM 11/12/20 11/21/23 04/29/24 History tablet,extended release 24 hr nitroglycerin 0.4 mg sublingual 0.5 mg sublingual ONCE PRN Chest 11/12/20 11/21/23 Unknown History tablet Pain sulfasalazine 500 mg tablet 1,000 mg PO BID 11/12/20 11/21/23 Unknown History clopidogrel 75 mg tablet 1 tab PO DAILY 01/21/21 11/21/23 04/21/24 History carvedilol 25 mg tablet 25 mg PO BID 11/21/23 11/21/23 04/29/24 History lisinopril 2.5 mg tablet 2.5 mg PO DAILY 11/21/23 11/21/23 Unknown History Assessment and Plan Assessment Anesthesia Assessment: Chart Reviewed Documented by User: Cecilia Bailon MD 04/29/24 09:42 PMFSH Past Medical History Medical History Asthma Chronic pain of both feet Screening for prostate cancer Screening for diabetes mellitus Hx of ulcerative colitis Peptic ulcer GERD (gastroesophageal reflux disease) On beta audrey at home On anticoagulant therapy Myocardial infarction CAD (coronary artery disease) HTN (hypertension) Hyperlipidemia Family History Family History Mother No problems noted. Father No problems noted. Family history of problems with anesthesia: No Surgical History Surgical History Hx of cystoscopy Hx of heart artery stent History of esophagogastroduodenoscopy (EGD) H/O colonoscopy History of PTCA History of Problems with Anesthesia: No Social History Social History Housing: House Alcohol intake: never Patient Tobacco Use Status: Never used Tobacco e-Cigarette/Vaping Use: Never Used Second Hand Smoke Exposure: No Are you DNR?: No Advance Directives: No Advance Directives Information Provided: Yes Nutrition Risks: No Nutritional Risk Current occupational status: retired Cognitive needs: No Hearing needs: No Vision needs: Yes Meds Allergies Allergy/AdvReac Type Severity Reaction Status Date / Time No Known Allergies Allergy Unknown Verified 11/21/23 08:33 Home Medications ?Medication ?Instructions ?Recorded ?Confirmed ?Last Taken ?Type albuterol sulfate 90 mcg/actuation 2 puff PO DAILY 11/12/20 11/21/23 Unknown History aerosol inhaler aspirin 81 mg tablet,delayed 81 mg PO DAILY 11/12/20 11/21/23 04/21/24 History release folic acid 1 mg tablet 1 mg PO DAILY 11/12/20 11/21/23 Unknown History isosorbide mononitrate 30 mg 30 mg PO QAM 11/12/20 11/21/23 04/29/24 History tablet,extended release 24 hr nitroglycerin 0.4 mg sublingual 0.5 mg sublingual ONCE PRN Chest 11/12/20 11/21/23 Unknown History tablet Pain sulfasalazine 500 mg tablet 1,000 mg PO BID 11/12/20 11/21/23 Unknown History clopidogrel 75 mg tablet 1 tab PO DAILY 01/21/21 11/21/23 04/21/24 History carvedilol 25 mg tablet 25 mg PO BID 11/21/23 11/21/23 04/29/24 History lisinopril 2.5 mg tablet 2.5 mg PO DAILY 11/21/23 11/21/23 Unknown History Exam Airway Mallampati Class: II TM Dist: >3cm Neck ROM: Full Heart: rrr Lungs: cta Assessment and Plan Assessment Anesthesia Assessment: Anesthesia Plan Discussed Final Anesthetic Review Family History of Problems with Anesthesia: No History of Problems with Anesthesia: No NPO: Yes ASA Class: III Final Preanesthetic Review: No Changes in Pt Med Stat, Meds/Allgs Chart Reviewed, Consent Obtained/Reviewed and Anes Risks/Benef Reviewed Patient Risk: Intermediate Procedure Risk: Low Anesthetic Plan Anesthetic Plan: MAC: Disposition: Standard PACU
[2024-04-29 08:39] VITALS: BP 120/75; PULSE 76; RESP 18; TEMP 36.3; O2SAT 96; BMI 30.8
[2024-04-29] MEDS: Lactated Ringers 1,000 ML 100 ML IVCONT (09:01)
--- NOTE | 2024-04-29 10:15 | MHC.SHP ---
Pre-Procedural Eval Section A - 24 Hr Update-Section A only Date of Service: 04/29/24 Section B - Complete if H&P > 30 days Chief Complaint: Ulcerative (chronic) pancolitis without complicati Details of Present Illness: see H&P no changes Relevant Family History (Specify if Yes): No Relevant Social History: None Medical History: No relevant PMH History of Previous Operations: No relevant previous surgery Allergies: Allergies Allergy/AdvReac Type Severity Reaction Status Date / Time No Known Allergies Allergy Unknown Verified 11/21/23 08:33 Review of Systems Sugical H&P ROS: Negative: Constitution, Cardiovascular, Respiratory, Neurological, Psychiatric, Hem-Onc, Allergic/Immunologic, Gastrointestinal, Genitourinary, Musculoskeletal, Integumentary, Endocrine and Eyes/Ears/Nose/Throat Exam Surgical H&P Exam: Normal: HEENT, Normal: Heart, Normal: Lungs, Normal: Extremities, Normal: Abdomen, Normal: Skin and Normal: Neurological Plan Diagnosis/Plan: Unchanged I have reviewed the history and physical and performed a pertinent physical examination on my patient. No changes have occurred unless specified. Time Spent With Patient Time: Total time managing care of this patient today ____ minutes.
[2024-04-29 10:48] VITALS: BP 91/48; PULSE 66; RESP 18; TEMP 36.1; O2SAT 96
[2024-04-29 10:53] VITALS: BP 88/47
--- NOTE | 2024-04-29 10:58 | OP_ITS ---
DATE OF SERVICE: 04/29/2024 SURGEON: Mitesh Pierce MD INDICATIONS: Ulcerative colitis. PREOPERATIVE DIAGNOSIS: POSTOPERATIVE DIAGNOSIS: PROCEDURE PERFORMED: Colonoscopy to the cecum with biopsy. ESTIMATED BLOOD LOSS: COMPLICATIONS: ANESTHESIA: Monitored anesthesia care. ASSISTANTS: SPECIMENS: DESCRIPTION OF PROCEDURE: A history and physical was performed. The risks and benefits of the procedure were explained to the patient and informed consent was obtained. The patient was placed in the left lateral decubitus position. A digital rectal exam was performed and was found to be normal. The Olympus pediatric video colonoscope was introduced into the rectum and advanced to the cecum without difficulty. The cecum was identified by transillumination, palpation, and identification of the ileocecal valve. Examination was performed and the scope was removed. He tolerated the procedure well and was returned to recovery area in stable condition. FINDINGS: The terminal ileum was not examined. The visualized colonic mucosa was normal. There was no evidence of active colitis. Retroflexed examination showed moderate-sized internal hemorrhoids. Biopsies were obtained from throughout the colon. IMPRESSION: Ulcerative colitis. RECOMMENDATION: Follow up the biopsy results. MD JUDY Barth/TEOFILO / [id number]
[2024-04-29 11:03] VITALS: BP 92/62; PULSE 66; RESP 18; O2SAT 95
[2024-04-29 11:18] VITALS: BP 99/61; PULSE 63; RESP 18; O2SAT 96
[2024-04-29 11:22] VITALS: BP 101/62
== END 2024-04-29 11:53 | disposition home or self-care (01) ==
PROVIDERS: PCP Internal Medicine; Visit Provider Internal Medicine Gastroenterology
PROC: 0DJD8ZZ Inspection of Lower Intestinal Tract, Via Natural or Artificial Opening Endoscopic (ICD-10-PCS; CPT 45378; principal; 2024-04-29 10:00)
DX: K51.00 Ulcerative (chronic) pancolitis without complications (principal); K21.9 Gastro-esophageal reflux disease without esophagitis; K64.8 Other hemorrhoids; Z87.11 Personal history of peptic ulcer disease; I10 Essential (primary) hypertension; I25.10 Atherosclerotic heart disease of native coronary artery without angina pectoris; Z95.5 Presence of coronary angioplasty implant and graft; I25.2 Old myocardial infarction; Z79.82 Long term (current) use of aspirin; Z79.899 Other long term (current) drug therapy; Z87.442 Personal history of urinary calculi
CPT/HCPCS: 45380; 88305; J2704

== ENCOUNTER 2024-05-21 08:17 | Outpatient (AMB) | payer MEDICARE, SELFPAY ==
[2024-05-21 08:30] VITALS: BP 106/70; PULSE 62; BMI 31.0
--- NOTE | 2024-05-21 08:30 | MHC.PC.OV ---
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 Allergies No Known Allergies Allergy (Unknown, Verified 05/21/24 08:37) Tobacco use date assessed: 11/21/23 Fall risk assessment: No Falls in past year Last assessed Fall Risk: 05/21/24 Dental Screening Dental Screen Date: 11/21/23 HPI 6mth f/u HPI Details hyperlipidemia on Rx; CAD and sees cardiology; stable; htn in good control PFSH Medical History Asthma Chronic pain of both feet Screening for prostate cancer Screening for diabetes mellitus Hx of ulcerative colitis Peptic ulcer GERD (gastroesophageal reflux disease) On beta audrey at home On anticoagulant therapy Myocardial infarction CAD (coronary artery disease) HTN (hypertension) Hyperlipidemia Surgical History Hx of cystoscopy Hx of heart artery stent History of esophagogastroduodenoscopy (EGD) H/O colonoscopy History of PTCA Family History Mother No problems noted. Father No problems noted. Social History Housing: House Alcohol intake: never Patient Tobacco Use Status: Never used Tobacco e-Cigarette/Vaping Use: Never Used Second Hand Smoke Exposure: No Current occupational status: retired Cognitive needs: No Hearing needs: No Vision needs: Yes Questionnaire Thrive Questionnaire Date Thrive assessed: 11/21/23 AUDIT C Alcohol Use Questionnaire (AUDIT-C) 1. How often do you have a drink containing alcohol?: Monthly or less 2. How many drinks containing alcohol do you have on a typical day when you are drinking?: 1 or 2 3. How often do you have six or more drinks on one occasion?: Never Total Score: 1 Score Reviewed/Action Taken: Yes MANSOOR-7 AMB Questionnaire MANSOOR-7 Date MANSOOR - 7 assessed: 11/21/23 Source: Developed by Drs. Aman Forde, Adelina Porter, Tyler Garvey and colleagues, with an educational lorena from [employer]. Review of Systems Const Denies chills, Denies headache(s) and Denies weight loss ENT Denies headache(s) Card Denies chest pain, Denies syncope, Denies irregular heart rhythm and Denies dyspnea Resp Denies chest congestion, Denies cough and Denies dyspnea GI Denies abdominal pain, Denies change in stool character, Denies nausea and Denies vomiting Musc Denies deformity and Denies joint swelling Neuro Denies syncope and Denies headache(s) Physical exam (Primary Care) Vital Signs: Last Vital Signs Pulse 62 05/21/24 08:30 BP 106/70 05/21/24 08:30 Oxygen Delivery Method Room Air 05/21/24 08:30 BMI result Body Mass Index 31.0 Tobacco/Smoking Status: Tobacco use Status Tobacco use date assessed 11/21/23 05/21/24 08:37 Patient Tobacco Use Status Never used Tobacco 05/21/24 08:37 e-Cigarette/Vaping Use Never Used 05/21/24 08:37 Thrive Assessment: Date of Thrive Assessment Date Thrive assessed 11/21/23 05/21/24 08:37 Const General: cooperative, comfortable, no acute distress and alert Neck Neck: Yes no lymphadenopathy Thyroid: Thyroid normal Resp Effort & Inspection: normal respiratory effort Auscultation: clear to auscultation bilaterally Percussion: percussion normal Cardio Jugular venous distension: no JVD Palpation: normal PMI Rate: regular rate Rhythm: regular rhythm Heart sounds: S1 normal heart sound present and S2 normal heart sound present GI Inspection: Yes normal to inspection Palpation (GI): No hepatosplenomegaly present Skin General skin exam: no rashes or lesions noted Extrem General: Yes no clubbing, cyanosis or edema Assessment and Plan Assessment & Plan (1) Hypertension: Code(s): I10 - Essential (primary) hypertension Plan: stable; same rx (2) CAD (coronary artery disease): Code(s): I25.10 - Atherosclerotic heart disease of [place] coronary artery without angina pectoris Plan: stable; same rx per cardiology (3) Hyperlipidemia: Code(s): E78.5 - Hyperlipidemia, unspecified Qualifiers: Hyperlipidemia type: unspecified Qualified Code(s): E78.5 - Hyperlipidemia, unspecified Plan: stable; same rx Coding Level of Care Code Est Pt Level 4 (66358) Diagnoses Hypertension I10 CAD (coronary artery disease) I25.10 Hyperlipidemia, unspecified hyperlipidemia type E78.5 Hyperlipidemia type: unspecified
== END 2024-05-21 08:44 | disposition home or self-care (01) ==
PROVIDERS: PCP Internal Medicine; Visit Provider Internal Medicine
DX: I10 Essential (primary) hypertension (principal); I25.10 Atherosclerotic heart disease of native coronary artery without angina pectoris; E78.5 Hyperlipidemia, unspecified
CPT/HCPCS: 99214

== ENCOUNTER 2024-12-05 08:21 | Outpatient (AMB) | payer MEDICARE, SELFPAY ==
[2024-12-05 08:23] VITALS: BP 106/78; PULSE 86; O2SAT 97; BMI 32.4
--- NOTE | 2024-12-05 08:23 | A.OFFPC_ITS ---
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 Accompanied by: Self / Same As Patient Allergies No Known Allergies Allergy (Unknown, Verified 12/05/24 08:24) Medication List - Last Reconciled 12/05/24 by Eric Arita MD albuterol sulfate 90 mcg/actuation 2 puffs PO DAILY aspirin 81 mg PO DAILY atorvastatin 80 mg PO DAILY benzonatate 100 mg PO TID PRN carvedilol 25 mg PO BID clopidogrel 1 tab PO DAILY folic acid 1 mg PO DAILY isosorbide mononitrate ER 30 mg PO QAM lisinopril 2.5 mg PO DAILY nitroglycerin 0.5 mg sublingual ONCE PRN pantoprazole 20 mg PO DAILY sulfasalazine 1,000 mg PO BID Tobacco use date assessed: 12/05/24 Fall risk assessment: No Falls in past year Last assessed Fall Risk: 12/05/24 Dental Screening Dental Screen Date: 12/05/24 Did you have a dental visit in the last 12 months?: Yes Did you have a dental problem in the last 6 months where you did not have access to dental care?: No Was dental information given to patient?: Patient has dentist HPI 6mth f/u HPI Details CAD; sees cardiology; doing well no chest pain PFSH Medical History Asthma Chronic pain of both feet Screening for prostate cancer Screening for diabetes mellitus Hx of ulcerative colitis Peptic ulcer GERD (gastroesophageal reflux disease) On beta audrey at home On anticoagulant therapy Myocardial infarction CAD (coronary artery disease) HTN (hypertension) Hyperlipidemia Surgical History Hx of cystoscopy Hx of heart artery stent History of esophagogastroduodenoscopy (EGD) H/O colonoscopy History of PTCA Family History Mother No problems noted. Father No problems noted. Social History (Reviewed 12/05/24 @ 08:24 by ISIDRO Kimble Housing: House Alcohol intake: never Patient Tobacco Use Status: Never used Tobacco e-Cigarette/Vaping Use: Never Used Second Hand Smoke Exposure: No Current occupational status: retired Cognitive needs: No Hearing needs: No Vision needs: Yes Questionnaire PHQ-9 Over the last 2 weeks, how often have you been bothered by any of the following problems? 1. Little interest or pleasure in doing things: not at all 2. Feeling down, depressed, or hopeless: not at all 3. Trouble falling or staying asleep, or sleeping too much: not at all 4. Feeling tired or having little energy: not at all 5. Poor appetite or overeating: not at all 6. Feeling bad about yourself - or that you are a failure or have let yourself or your family down: not at all 7. Trouble concentrating on things, such as reading the newspaper or watching television: not at all 8. Moving or speaking so slowly that other people could have noticed. Or the opposite - being so fidgety or restless that you have been moving around a lot more than usual: not at all 9. Thoughts that you would be better off or of hurting yourself in some way: not at all Total score: 0 Depression Screening Interpretation: Negative Depression Screening Done: Yes [id number] - PHQ-9 Billing: Yes Source: Developed by Drs. Aman Forde, Adelina Porter, Tyler Garvey and colleagues, with an educational lorena from [employer]. Thrive Questionnaire Date Thrive assessed: 12/05/24 I am a: Patient What is your living situation today?: I have a steady place to live Within the past 12 months, did the food you bought not last and you didn't have the money to get more?: Never true Within the past 12 months, did you worry whether your food would run out before you got money to buy more?: Never true Do you have trouble paying for medicines?: No Do you have trouble getting transportation to medical appointments?: No Do you have trouble paying your heating and electricity bill?: No Do you have trouble taking care of your child, family member or friend?: No Do you have trouble with day-to-day activities such as bathing, preparing meals, shopping, managing finances, etc.?: No Are you currently unemployed and looking for a job?: No Are you interested in more education?: No Please select the resources that you would like help with: None Currently or been in a relationship where the following occur: No concerns reported THRIVE Score: 0 AUDIT C Alcohol Use Questionnaire (AUDIT-C) 1. How often do you have a drink containing alcohol?: Monthly or less 2. How many drinks containing alcohol do you have on a typical day when you are drinking?: 1 or 2 3. How often do you have six or more drinks on one occasion?: Never Total Score: 1 Score Reviewed/Action Taken: Yes MANSOOR-7 AMB Questionnaire MANSOOR-7 Date MNASOOR - 7 assessed: 12/05/24 Feeling nervous, anxious, or on edge: 0 = Not at all Not being able to stop or control worryin = Not at all Worrying too much about different things: 0 = Not at all Trouble relaxin = Not at all Being so restless that it is hard to sit still: 0 = Not at all Becoming easily annoyed or irritable: 0 = Not at all Feeling afraid as if something awful might happen: 0 = Not at all Total MANSOOR-7 score (0-4 normal; 5-9 mild; 10-14 moderate; 15-21 severe): 0 Source: Developed by Drs. Aman Forde, Adelina Porter, Tyler Garvey and colleagues, with an educational lorena from [employer]. Review of Systems Const Denies chills, Denies headache(s) and Denies weight loss ENT Denies headache(s) Card Denies chest pain, Denies syncope, Denies irregular heart rhythm and Denies dyspnea Resp Denies chest congestion, Denies cough and Denies dyspnea GI Denies abdominal pain, Denies change in stool character, Denies nausea and Denies vomiting Musc Denies deformity and Denies joint swelling Neuro Denies syncope and Denies headache(s) Physical exam (Primary Care) Vital Signs: Last Vital Signs Pulse 86 12/05/24 08:23 BP 106/78 12/05/24 08:23 Pulse Ox 97 12/05/24 08:23 Oxygen Delivery Method Room Air 12/05/24 08:23 BMI result Body Mass Index 32.4 Tobacco/Smoking Status: Tobacco use Status Tobacco use date assessed 12/05/24 12/05/24 08:29 Patient Tobacco Use Status Never used Tobacco 12/05/24 08:29 e-Cigarette/Vaping Use Never Used 12/05/24 08:29 PHQ-9: PHQ-9 Score PHQ-9: Total score 0 12/05/24 08:29 Depression Screening Interpretation: Negative Thrive Assessment: Date of Thrive Assessment Date Thrive assessed 12/05/24 12/05/24 08:29 Currently or been in a relationship where the following occur: No concerns reported Const General: cooperative, comfortable, no acute distress and alert Neck Neck: Yes no lymphadenopathy Thyroid: Thyroid normal Resp Effort & Inspection: normal respiratory effort Auscultation: clear to auscultation bilaterally Percussion: percussion normal Cardio Jugular venous distension: no JVD Palpation: normal PMI Rate: regular rate Rhythm: regular rhythm Heart sounds: S1 normal heart sound present and S2 normal heart sound present GI Inspection: Yes normal to inspection Palpation (GI): No hepatosplenomegaly present Skin General skin exam: no rashes or lesions noted Extrem General: Yes no clubbing, cyanosis or edema Coding Level of Care Code Est Pt Level 3 (18985) Diagnoses CAD (coronary artery disease) I25.10 Additional Codes PHQ-9 - 48073 - PHQ-9 Billing: Yes ([id number]) Assessment & Plan Assessment & Plan (1) CAD (coronary artery disease): Code(s): I25.10 - Atherosclerotic heart disease of [place] coronary artery without angina pectoris Category: Medical Plan: stable; per cardiology
--- OUTSIDE RECORDS SUMMARY | 2024-12-05 08:26 | XMS_ITS | Data Portability ---
Author Organization [place] [facility] Tony Garber AONE [place] Address [address] [place] [address] Care Team Providers Care Tuckpointer Name Role Phone HALINA DAVIDSON Referring Provider [phone] HALINA DAVIDSON Primary Care Provider Assessment Encounter Date Assessment Date Assessment LastModified by Organization Details LastModified Time 11/13/2023 11/13/2023 Pleasant 68-year-old male degenerative arthritis of the right knee for which he opted for cortisone injection at today's visit. After verbal consent was obtained. The procedure was carried out on the right knee. He tolerated the procedure well aftercare instructions were discussed in detail. Follow-up in 3 months time for repeat clinical exam. Should his symptoms not improve or worsen he should contact my office. He agrees with this plan. Patient was seen and evaluated by Kb Cordon PA-C in indirect conjuction with Documenting Provider: Rubén Hopper MD . He/She agrees with history, physical examination, tests/diagnostic imaging, and treatment plan. Additional treatment plan discussed with the patient (only initiated if in boldface font) otherwise not applicable. Treatment may include the following; - Provider focused nonsteroidal anti-inflammatory regimen (discussed were the pros, cons, benefits and risks as well as any black box warnings) in patients over 60 years old they should be very cautious in taking these medications due to potential decreased kidney function and or elevated blood pressure. - Analgesic pain medication for pain suppression (discussed were the pros, cons, benefits and risks as well as any black box warnings) - The use of topical pain relieving medication were discussed - The use of ice to decrease inflammation and pain - The use of assistive ambulatory devices for ambulation and fall prevention - Formal specific guided physical therapy program I reviewed my findings at length with the patient today. ??We discussed the nature and etiology of this problem along with current treatment options. We discussed the expected course and outcomes and what to expect. We also discussed risks and benefits. ?? All of their questions were answered today, and there was exhibited understanding and comprehension of all that was discussed. Time Spent: 10 minutes were spent reviewing previous imaging and charting. ??10 minutes were spent obtaining patient history. ??5 minutes were spent on physical exam. ??5??minutes were spent explaining diagnosis and assessment. Today's documentation was made using voice recognition software. This note may contain grammatical errors secondary to the software. Not available 11/13/2023 14:21:06 11/21/2023 11/21/2023 Pleasant 68-year-old male doing well after cortisone injection of the left shoulder on 10/10/2023. He will continue with stretching exercises. I did reissue him a prescription for formal physical therapy would like to see him back in approximately 10 to 12 weeks for reevaluation. Should his symptoms return he should contact my office immediately. He agrees with this plan. Patient was seen and evaluated by Kb Cordon PA-C in indirect conjuction with Documenting Provider: Kishor Mccoy MD . He/She agrees with history, physical examination, tests/diagnostic imaging, and treatment plan. Additional treatment plan discussed with the patient (only initiated if in boldface font) otherwise not applicable. Treatment may include the following; - Provider focused nonsteroidal anti-inflammatory regimen (discussed were the pros, cons, benefits and risks as well as any black box warnings) in patients over 60 years old they should be very cautious in taking these medications due to potential decreased kidney function and or elevated blood pressure. - Analgesic pain medication for pain suppression (discussed were the pros, cons, benefits and risks as well as any black box warnings) - The use of topical pain relieving medication were discussed - The use of ice to decrease inflammation and pain - The use of assistive ambulatory devices for ambulation and fall prevention - Formal specific guided physical therapy program I reviewed my findings at length with the patient today. ??We discussed the nature and etiology of this problem along with current treatment options. We discussed the expected course and outcomes and what to expect. We also discussed risks and benefits. ?? All of their questions were answered today, and there was exhibited understanding and comprehension of all that was discussed. Time Spent: 10 minutes were spent reviewing previous imaging and charting. ??10 minutes were spent obtaining patient history. ??5 minutes were spent on physical exam. ??5??minutes were spent explaining diagnosis and assessment. Today's documentation was made using voice recognition software. This note may contain grammatical errors secondary to the software. Not available 11/22/2023 08:13:15 01/30/2024 01/30/2024 Pleasant 68-year-old male degenerative arthritis of the right knee for which he opted for cortisone injection at today's visit. After verbal consent was obtained. The procedure was carried out on the right knee. He tolerated the procedure well aftercare instructions were discussed in detail. Follow-up in 3 months time for repeat clinical exam. Should his symptoms not improve or worsen he should contact my office. He agrees with this plan. Patient was seen and evaluated by Kb Cordon PA-C in indirect conjuction with Documenting Provider: Rubén Hopper MD . He/She agrees with history, physical examination, tests/diagnostic imaging, and treatment plan. Additional treatment plan discussed with the patient (only initiated if in boldface font) otherwise not applicable. Treatment may include the following; - Provider focused nonsteroidal anti-inflammatory regimen (discussed were the pros, cons, benefits and risks as well as any black box warnings) in patients over 60 years old they should be very cautious in taking these medications due to potential decreased kidney function and or elevated blood pressure. - Analgesic pain medication for pain suppression (discussed were the pros, cons, benefits and risks as well as any black box warnings) - The use of topical pain relieving medication were discussed - The use of ice to decrease inflammation and pain - The use of assistive ambulatory devices for ambulation and fall prevention - Formal specific guided physical therapy program I reviewed my findings at length with the patient today. ??We discussed the nature and etiology of this problem along with current treatment options. We discussed the expected course and outcomes and what to expect. We also discussed risks and benefits. ?? All of their questions were answered today, and there was exhibited understanding and comprehension of all that was discussed. Time Spent: 10 minutes were spent reviewing previous imaging and charting. ??10 minutes were spent obtaining patient history. ??5 minutes were spent on physical exam. ??5??minutes were spent explaining diagnosis and assessment. Today's documentation was made using voice recognition software. This note may contain grammatical errors secondary to the software. Not available 01/30/2024 08:41:49 10/14/2024 10/14/2024 69-year-old male with left hip pain. History and exam are consistent with gluteal tendinitis. He also has some mild osteoarthritis of the left hip though I believe the majority of his symptoms are coming from the gluteal tendons. After discussion regarding treatment options he will be provided a prescription for a prednisone taper. Traditional NSAIDs are relatively contraindicated by his current use of Plavix. He will also be provided an order for physical therapy. Follow-up in 6 to 8 weeks. If he is failing to improve he could benefit from a cortisone injection at that time. This patient was seen and evaluated by Kb Marshall MS, PAOrion in indirect conjunction with documenting/superv ising provider Rubén Hopper MD. He agrees with history, physical examination, tests/diagnostic imaging, and treatment plan. This document was generated using voice recognition software. As a result, there may be unintended spelling, grammatical and/or textual errors. Not available 10/14/2024 15:50:44 12/02/2024 12/02/2024 69-year-old male with left hip pain secondary to gluteal tendinitis. Following a prednisone taper and course of physical therapy he is largely asymptomatic. I have encouraged him to continue to do the stretching exercises that he learned in physical therapy. I think that this is his best bet for preventing future recurrences. Follow-up as now as needed. Not available 12/02/2024 10:49:05 Plan of Treatment Reminders Order Date Submit Date Provider Last Modified By Organization Details Last Modified Time Details Appointments None recorded. Lab None recorded. Referral physical therapist referral - Left shoulder impingement syndrome eval and treat 2023 024 [email or web address] Not available 13:37:33 Procedures None recorded. Surgeries None recorded. Imaging XR, hip, unilateral, 2 or 3 view 2023 024 [facility], [address], [place], [address], 4 16:29:35 Medication Orders Kenalog 40 mg/mL suspension for injection [address] [id number], [address] [place] [place], [id number], 4 16:00:26 lidocaine (PF) 100 mg/5 mL (2 %) injection syringe [address] [facility], [address] [place], [id number], 4 16:00:29 Kenalog 40 mg/mL suspension for injection [address] [facility]781, [address] [place], [place], [id number], 4 16:00:26 lidocaine (PF) 100 mg/5 mL (2 %) injection syringe [address] [facility], [address] [place], [place], [id number], 4 16:00:29 prednisone 10 mg tablet 2023 024 [facility]08, [address] [place], [place], [id number], 4 15:48:40 Patient TargetsNo targets recorded. Patient Instructions Encounter Date Encounter Id Patient Instructions Last Modified By Organization Details Last Modified Time 11/13/2023 [id number] You have been provided with a cortisone injection in order to reduce the pain and inflammation that you are experiencing. The injection consists of two medications. Cortisone (an anti-inflammatory that will take 48-72 hours to take effect) and Lidocaine (a numbing agent that will last 2-3 hours). Please note that not everyone will have a lasting response following the injection. PATIENT INSTRUCTIONS Once the Lidocaine wears off, you may have an increase in your pain. I recommend icing the affected area for 20 minutes 3-4 times per day. It is recommended that you refrain from any high level activities using the joint or limb that was injected for approximately 24-48 hours. Normal day-to-day activities are generally not a problem. POSSIBLE SIDE EFFECTS Individuals with dark complexions may experience some skin discoloration locally at the site of the injection. There is the possibility of an increase in discomfort within 48 hours following the injection. This is called a ? flare? . To help minimize the chances of this, please see the post-injection instructions above. There is a less than 1% chance of an infection. If you notice any signs of infection (redness, warmth, drainage, fever greater than 100 degrees) please call our office or contact us through the portal [place]. Not available 11/13/2023 14:20:25 01/30/2024 [id number] You have been provided with a cortisone injection in order to reduce the pain and inflammation that you are experiencing. The injection consists of two medications. Cortisone (an anti-inflammatory that will take 48-72 hours to take effect) and Lidocaine (a numbing agent that will last 2-3 hours). Please note that not everyone will have a lasting response following the injection. PATIENT INSTRUCTIONS Once the Lidocaine wears off, you may have an increase in your pain. I recommend icing the affected area for 20 minutes 3-4 times per day. It is recommended that you refrain from any high level activities using the joint or limb that was injected for approximately 24-48 hours. Normal day-to-day activities are generally not a problem. POSSIBLE SIDE EFFECTS Individuals with dark complexions may experience some skin discoloration locally at the site of the injection. There is the possibility of an increase in discomfort within 48 hours following the injection. This is called a ? flare? . To help minimize the chances of this, please see the post-injection instructions above. There is a less than 1% chance of an infection. If you notice any signs of infection (redness, warmth, drainage, fever greater than 100 degrees) please call our office or contact us through the portal [place]. Not available 01/30/2024 08:41:49 10/14/2024 [id number] prednisone dosag e instructions Not available 10/14/2024 15:48:31 physical therapy * - Diagnosis: Left hip pain secondary to gluteal tendinitis Evaluate and treat as indicated to reduce pain and to improve strength, mobility, stability, range of motion, and function. Please teach a home exercise plan and incorporate PT into patient's exercise routine. 2-3 sessions weekly for 6-8 weeks. [email or web address] Not available 10/21/2024 08:49:18 {{2 3 4* 5 6 7 8 9 }} view X-ray study obtained during today's office encounter show evidence of {{mild* moderate s evere}} {{right left* bila teral}} {{hip* knee}} osteoarthritis. There is joint space narrowing, subchondral sclerosis and marginal osteophytosis. Kellgren-Juan grade {{0 1 2* 3 4}}. No evidence of acute fracture or osteolytic findings. Not available 10/14/2024 15:50:08 Reason for Referral Physical Therapist Referral for Impingement syndrome of left shoulder region Left shoulder impingement syndrome eval and treat Referring Physician: Kb Cordon, Orthopedic Surgery, Encounter Date: 11/21/2023 Problems Name Problem SNOMED Code Status Onset Date Resolution Date Notes Provider Name and Address Organization Details Recorded Time Osteoarthri tis of left glenohumera l joint 1820874524998 104 Active 2022 KB CORDON PA-C [address], [place], [place], [address], [place] [facility] 3 13:20:21 Adhesive capsulitis of left shoulder 4960385034748 07 Active 2022 KB CORDON PA-C [address], [place], [address], [place] [facility], [facility] 3 13:22:30 Impingement syndrome of left shoulder region 4776307160054 04 Active 2022 KB CORDON PA-C [address], [place], [address], [place] [facility], [facility] 3 13:22:45 Tendinitis of left gluteal tendon 3417765008279 08 Active 2023 KB MARSHALL PA-C [address], [facility] [place], [address], [place] [facility], [facility] 4 15:47:31 Osteoarthri tis of right knee joint 6711617403984 00 Active 2022 Rubén Hopper MD [address], [facility] [place], [address], [place] [facility], [facility] 3 16:25:28 Problem Notes None recorded. Procedures Surgical History Date Name Laterality Status Provider Name and Address Organization Details Recorded Time 4 Knee Joint/Bursa Asp & Inj completed KB CORDON PA-C [address] [facility],[place] [address], [place], [address], [place] - [facility] 01/30/2024 08:41:48 4 Knee Joint/Bursa Asp & Inj completed KB CORDON PA-C [address] [facility],[address] [facility], [place], [address], [place] [facility], [facility] 11/13/2023 14:19:34 3 Shoulder Joint/Bursa Asp & Inj completed KB CORDON PA-C [address] [facility],[address] [facility], [place], [address], [place] [facility] 10/10/2023 13:08:08 Imaging Results None recorded. Procedure Notes None recorded. Medical Equipment None Reported. Allergies No known drug allergies Medications Name Sig Start Date Stop Date Status Note LastModified by Organization Details LastModified Time atorvastati n 80 mg tablet TAKE 1 TABLET BY MOUTH DAILY active Not Available Not Available No t Available carvedilol 25 mg tablet TAKE 1 TABLET BY MOUTH TWICE DAILY WITH MEALS active Not Available Not Available No t Available prednisone 10 mg tablet Day 1: 4 tablets in the morning, Day 2: 4 tablets in the morning, Day 3: 3 tablets in the morning, Day 4: 3 tablets in the morning, Day 5: 2 tablets in the morning, Day 6: 2 tablets in the morning, Day 7: 1 tablet in the morning, Day 8: 1 tablet in the morning! active Not Available Not Available No t Available carvedilol 12.5 mg tablet TAKE 1 TABLET BY MOUTH TWICE DAILY WITH FOOD 10/10 completed Not Available Not Available Not Available sulfasalazi ne 500 mg tablet TAKE 2 TABLETS BY MOUTH TWICE DAILY active Not Available Not Available No t Available bupivacaine HCl 0.5 % (5 mg/mL) injection solution Take 2 mL by injection route. 11/13 completed Not Available Not Available Not Available isosorbide mononitrate ER 30 mg tablet,exte nded release 24 hr TAKE 1 TABLET BY MOUTH DAILY active Not Available Not Available No t Available clopidogrel 75 mg tablet TAKE 1 TABLET BY MOUTH DAILY active Not Available Not Available No t Available amoxicillin 500 mg tablet TAKE 1 TABLET BY MOUTH EVERY 8 HOURS UNTIL ALL TAKEN 10/14 completed Not Available Not Available Not Available pantoprazol e 20 mg tablet,matt yed release TAKE 1 TABLET BY MOUTH DAILY active Not Available Not Available No t Available Kenalog 40 mg/mL suspension for injection Take 2 mL by injection route. 10/14 completed Not Available Not Available Not Available benzonatate 100 mg capsule TAKE 1 CAPSULE BY MOUTH THREE TIMES DAILY NEEDED FOR COUGH 10/14 completed Not Available Not Available Not Available lisinopril 10 mg tablet TAKE 1 TABLET BY MOUTH DAILY 11/13 completed Not Available Not Available Not Available nitroglycer in 0.4 mg sublingual tablet active Not Available Not Available Not Available folic acid 1 mg tablet TAKE 1 TABLET BY MOUTH EVERY active Not Available Not Available No t Available lisinopril 2.5 mg tablet TAKE 1 TABLET BY MOUTH DAILY active Not Available Not Available No t Available ciclopirox 0.77 % topical cream active Not Available Not Available Not Available lisinopril (bulk) 100 % powder Take 2.5 g every 24 hours by miscell. route. 10/10 completed Not Available Not Available Not Available lidocaine (PF) 100 mg/5 mL (2 %) injection syringe Take 2 mL by injection route. 10/14 completed Not Available Not Available Not Available Vitals Date Recorded Body height Provider Name an d Address Organization Details Last Updated DateTime 11/21/[address] [place] [facility] 11/21/2023 10:28:44 Date Recorded Body height Body mass index (BMI) Body weight Provider Name and Address Organization Details Last Updated DateTime 10/14/2024 175.26 cm 30.6 kg/m2 [address] [place] [facility] 10/14/2024 15:30:50 Date Recorded Body height Body mass index (BMI) Body weight Provider Name and Address Organization Details Last Updated DateTime 12/02/2024 175.26 cm 30.6 kg/m2 08678.62 g Deena Urena [facility] 12/02/2024 10:29:30 Social History Question Answer Notes LastModified by Organizat ion Details LastModified Time Tobacco Smoking Status Never Smoker Rita alvarez, [place] - [facility] 04/03/2023 15:46:35 What Is Your Level Of Alcohol Consumption? Occasional Information not available 04/03/2023 How Many Times Per Week Do You Consume Alcohol? Less Than 1 Time Per Week Information not available 04/03/2023 Do You Use Any Illicit Or Recreational Drugs? No Information not available 04/03/2023 Do You Or Have You Ever Used Any Other Forms Of Tobacco Or Nicotine? No Information not available 04/03/2023 Sex: Unknown Functional Status None recorded. Mental Status None recorded. Family History Nothing Reported. Medical History Condition Response Heart Attack (CO) Y Reflux/GERD Y Hypertension Y Past Encounters Encounter ID Performer Location Encounter Start Date Encounter Closed Date Diagnosis/Indication Diagnosis SNOMED-CT Code Diagnosis ICD10 Code Diagnosis Note [id number] MD FELICIA Barkley [address] [address] 04/03/2023 15:20:19 04/03/2023 16:29:14 Pain of right knee joint 0502107269 47823 M25.561 Osteoarthr itis of right knee joint 6733718824 57129 M17.11 [id number] MD FELICIA Barkley [address] [place] [address] 09/04/2023 13:15:28 09/04/2023 14:07:53 Osteoarthritis of right knee joint 5633656617 88102 M17.11 [id number] MD FELICIA Dodson [facility] [address] [facility] [address] [place] [address] 10/10/2023 09:35:26 10/10/2023 11:15:30 Pain of left shoulder joint 0192598914 2775483 M25.512 Osteoarthr itis of left glenohumeral joint 7743008583 322495 M19.012 Adhesive c apsulitis of left shoulder 0595104528 77993 M75.02 Impingemen t syndrome of left shoulder region 8387970884 18478 M75.42 [id number] MD FELICIA Barkley [facility] [address] [place] [address] 11/13/2023 13:49:11 11/13/2023 14:26:38 Osteoarthritis of right knee joint 4357940510 76234 M17.11 [id number] MD FELICIA Dodson [facility] [address] [place] [address] 11/21/2023 09:44:28 11/21/2023 10:53:55 Impingement syndrome of left shoulder region 5885626454 14126 M75.42 Follow-up orthopedic assessment 326853661 Z47.89 [id number] MD FELICIA Barkley [facility] [address] [place] [address] 01/30/2024 08:17:25 01/30/2024 08:48:07 Osteoarthritis of right knee joint 3668439360 16916 M17.11 [id number] MD FELICIA Barkley [address] [address] 10/14/2024 14:38:30 10/14/2024 15:53:05 Hip pain 77364430 M25.552 Tendinitis of left gluteal tendon 1633991440 76958 M76.02 [id number] MD FELICIA Barkley [address] [address] 12/02/2024 10:17:16 12/02/2024 10:47:20 Tendinitis of left gluteal tendon 4602376005 09219 M76.02 Health Concerns Section Related Observation LastModified by Organization Detai ls LastModified Time None Recorded Concern Status LastModified by Organization Details LastModified Time None Recorded Advance Directives Directive None Recorded Payers Encounter Date Sequence Insurance Name Policy Number Policy Matthew Covered Member ID Matthew Member ID Guarantor Name 11/13/2023 1 [place] [employer] Sudarshan Ramos Billeter [id number] Sudarshan Billeter 11/13/2023 2 [place] [id number] Sudarshan Billeter [id number] Sudarshan Billeter 11/21/2023 1 [place] [facility] [employer] Sudarshan Ramos Billeter [id number] Sudarshan Billeter 11/21/2023 2 [place] [id number] Sudarshan Billeter [id number] Sudarshan Billeter 01/30/2024 1 [place] [employer] Sudarshan Ramos Billeter [id number] Sudarshan Billeter 01/30/2024 2 [place] [id number] Sudarshan Billeter [id number] Sudarshan Billeter 10/14/2024 1 [place] Sudarshan Richard Billeter [id number] Sudarshan Billeter 10/14/2024 2 [place] [id number] Sudarshan Billeter [id number] Sudarshan Billeter 12/02/2024 1 [place] Sudarshan Ramos Billeter [id number] Sudarshan Billeter 12/02/2024 2 [place] [id number] Sudarshan Billeter [id number] Sudarshan Billeter Notes Date Note Type Note Provider Name and Address Organization Details Recorded Time 11/13/2023 text/html 68-year-old male history of right knee arthritis last seen by Dr. Hopper on 09/04/2023. No cortisone injection at that time. Pain is medial nature gets worse with walking. He does wear knee brace which helps. Here for follow-up and cortisone injection. KB CORDON PA-C [address] [facility],[address], [place], [address], [place] [facility] 11/13/2023 14:26:22 11/21/2023 text/html 68-year-old male here for follow-up after treatment for left shoulder pain with cortisone injection 10/10/2023. He was prescribed PT however he did not he is asking for a new prescription. He states near complete relief of symptoms. KB CORDON PA-C [address], [place], [id number], [place] - [facility] 11/22/2023 08:13:35 01/30/2024 text/html 68-year-old male history of right knee arthritis last cortisone injection 11/13/2023 which gave him last relief up until recently. He is leaving in approximately a week and a half for [place] for which she would like to have good relief with the amount of walking that he is doing. Denies any interval change in history. Pain is medial nature that is worse with prolonged walking he takes [id number] pain medication for symptomatic relief and occasionally wears a knee brace. KB CORDON PA-C [address] [facility],[address], [place], [address], [place] - [facility] 01/30/2024 09:10:49 10/14/2024 text/html 69-year-old male presents with chief complaints of left hip pain. Symptoms of onset several weeks if not months ago with progressive worsening of frequency and intensity. He reports that going up stairs aggravate his pain. He denies pain into the groin or thigh. There is no involvement of the midline of the low back. This is the first he is seeking medical attention for this problem. KB MARSHALL PA-C [address], [place], [address], [place] - [facility] 10/14/2024 15:51:02 12/02/2024 text/html 69-year-old male presents for recheck of left hip pain. He reports that he used the prednisone taper and felt much better very quickly. He did choose to attend physical therapy. He reports that he learned some stretching exercises. By and large, he is comfortable now but does have some discomfort if he stands to walk after having been seated cross-legged for an extended period of time. KB MARSHALL PA-C [address], [place], [address], [place] - [facility] 12/02/2024 10:49:19
--- OUTSIDE RECORDS SUMMARY | 2024-12-05 08:27 | XMS_ITS | Clinical Summary ---
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 08/18/2024 Active nitroglycerin (NITROSTAT) 0.4 mg SL tablet DISSOLVE 1 TABLET UNDER THE TONGUE EVERY 5 MINUTES NEEDED FOR CHEST PAIN. MAX OF 3 DOSES. WHEN TAKING THIRD DOSE, CALL 911 06/09/2024 Active pantoprazole (PROTONIX) 20 mg EC tablet Take 20 mg by mouth daily. Active ASPIRIN ORAL Take 1 Tablet by mouth daily. Active atorvastatin (LIPITOR) 80 mg tablet Take 80 mg by mouth daily. Active clopidogreL (PLAVIX) 75 mg tablet TAKE 1 TABLET BY MOUTH DAILY 90 tablet 1 11/28/2024 Active carvediloL (COREG) 25 mg tablet TAKE 1 TABLET BY MOUTH TWICE DAILY WITH MEALS 180 tablet 1 11/28/2024 Active lisinopriL (PRINIVIL,ZESTRIL ) 2.5 mg tablet TAKE 1 TABLET BY MOUTH DAILY 90 tablet 1 11/28/2024 Active carvediloL (COREG) 25 mg tablet Take 1 Tablet by mouth 2 times daily (with meals). 11/23/2023 5 Discontinued lisinopriL (PRINIVIL,ZESTRIL ) 2.5 mg tablet Take 1 tablet (2.5 mg total) by mouth 1 (one) time each day. 11/22/2023 5 Discontinued clopidogreL (PLAVIX) 75 mg tablet Take 1 tablet (75 mg total) by mouth 1 (one) time each day. 11/22/2023 5 Discontinued Active Problems Problem Noted Date Diagnosed Date Chest pain 05/29/2023 Ischemic cardiomyopathy 11/23/2021 Overview (10/31/2024): Last Assessment & Plan: EF in the range of 50%, he is feeling quite well. As mentioned above he did have a period of time when he was increasing his exercise regimen where he was experiencing chest tightness, he did take sublingual nitro few times which helped the symptoms. He continued to exercise and no longer experiences any ischemic symptoms at all. He is feeling quite well other than some mild lightheadedness. His systolic blood pressure is on the low side, we will decrease his lisinopril to 10 mg daily, he will trial this over the next 2 weeks and let me know how he is feeling. He has a trip planned to [place] in [place] around 08 May and was somewhat hesitant to make any medication changes prior, however I did review with the hot weather he will be in in the altitude it is best to try to make this adjustment before his trip. I also stressed he needs to increase his water intake. Reviewed signs and symptoms of heart failure and educated regarding monitoring weight, diet, and fluid intake. If there is a weight gain of 3 pounds in one day or 5 pounds in a week please call our office or seek medical attention if necessary. Essential hypertension 05/12/2021 Overview (10/31/2024): Last Assessment & Plan: Runs on the low side of normal, today 100/60, he has no symptoms of lightheaded/dizziness. We talked about hydrating well. For now he will continue to monitor his symptoms, should he develop any lightheadedness/dizziness we would decrease his lisinopril. Stable angina pectoris 05/12/2021 Coronary artery disease due to calcified coronar y lesion 11/04/2020 Overview (10/31/2024): Last Assessment & Plan: Feeling well, exercising regularly, not needing any sublingual nitroglycerin. Continue ASA, Plavix, BB, LINN, statin. Mixed hyperlipidemia 11/04/2020 Overview (10/31/2024): Last Assessment & Plan: No recent lipid panel, goal LDL is less than 70. We will ask him to obtain fasting labs. Continue statin. Old IL (myocardial infarction) 11/04/2020 Medical History Medical History Date Comments Essential hypertension DX:Essent ial hypertension Hyperlipidemia DX:Hyperlipidemi a Family history of cardiovascular disease DX:Family history of cardiovascular disease Family History Medical History Relation Name Comments Heart attack Brother Relation Name Status Comments Brother Social History Tobacco Use Types Packs/Day Years Used Date Smoking Tobacco: Never Smokeless Tobacco: Never Alcohol Use Standard Drinks/Week Comments Yes 0 (1 standard drink = 0.6 oz pur e alcohol) Sex and Gender Information Value Date Recorded Sex Assigned at Not on file Gender Identity Not on file Sexual Orientation Not on file Obstetrics History Last Filed Vital Signs Vital Sign Reading Time Taken Comments Blood Pressure 115/70 06/18/2024 2:39 PM EDT Sit ting L Arm Pulse 65 06/18/2024 2:39 PM EDT Temperature - - Respiratory Rate - - Oxygen Saturation - - Inhaled Oxygen Concentration - - Weight 94.3 kg (208 lb) 06/18/2024 2:39 PM EDT Height 175.3 cm (5' 9 ) 06/18/2024 2:39 PM EDT Body Mass Index 30.72 06/18/2024 2:39 PM EDT Plan of Treatment Upcoming Encounters Date Type Department Care Team (Late st Contact Info) Description 12/11/2024 1:40 PM EST Office Visit [facility] [address] [facility] [address] [place] [address] Saranya Lau NP [address] [place] [address] Health Maintenance Due Date Last Done Comments COVID-19 Vaccine (#1) 1959 Pneumococcal Vaccine: 65+ Years (1 of 2 - PCV) 1960 DTaP,Tdap,and Td Vaccines (1 - Tdap) 1973 Zoster Vaccines (1 of 2) 2004 RSV Immunization Patients 60 + Years Old (1 - Risk 60-74 years 1-dose series) 2014 Colorectal Cancer Screening: Colonoscopy 10/13/2022 Depression Screening 10/13/2022 Falls Risk Assessment 10/13/2022 Hepatitis C Screening 10/13/2022 Medicare Annual Wellness Visit 10/13/2022 Social Influencers of Health Screening 10/13/2022 Hypertension/CHF/CAD Annual BMP Blood Test 06/06/2023 06/06/2022 Influenza Vaccine (#1) 2024 2, 08/02/2021, 07/21/2020 Cholesterol Screening (Lipid Panel) 06/06/2027 06/06/2022 HIB Vaccines Aged Out No longer eligi ble based on patient's age to complete this topic HPV Vaccines Aged Out No longer eligi ble based on patient's age to complete this topic Hepatitis A Vaccines Aged Out No long er eligible based on patient's age to complete this topic Hepatitis B Vaccines Aged Out No long er eligible based on patient's age to complete this topic IPV Vaccines Aged Out No longer eligi ble based on patient's age to complete this topic MMR Vaccines Aged Out No longer eligi ble based on patient's age to complete this topic Meningococcal ACWY Vaccine Aged Out N o longer eligible based on patient's age to complete this topic RSV Immunization Patients Under 20 months Aged Out No longer eligible b ased on patient's age to complete this topic Varicella Vaccines Aged Out No longer eligible based on patient's age to complete this topic Procedures Procedure Name Priority Date/Time Associated Diagnosis Comments ANNUAL BMP BLOOD TEST Routine 06/06/2022 LIPID PANEL Routine 06/06/2022 from Last 3 Months or Most Recently Relevant to Health Maintenance Results * Annual BMP Blood Test (06/06/2022) Pathologist [facility] Annual BMP Blood Test abstracted Historical Provider MD DELONTE LUNA E * (ABNORMAL) Lipid panel (06/06/2022) Pathologist [facility] LDL/HDL Ratio 3 0 - 4 Triglycerides 85 0 - 150 mg/dL Cholesterol 91 0 - 200 mg/dL HDL 31(A) 40 mg/dL LDL Cholesterol 43 0 - 100 mg/dL Blood Venous blood specimen / Unknown Historical Provider LAB BLOOD ORDERAB LES from Last 3 Months or Most Recently Relevant to Health Maintenance Care Teams Stock Saw Operator Relationship Specialty Start Date End Date Eric Arita MD [address] [place] [address] PCP - General Internal Medicine 10/06/20
--- OUTSIDE RECORDS SUMMARY | 2024-12-05 08:27 | XMS_ITS ---
Author Name [facility] Organization Unknown History of Medication Use Medication Directions Dispensed Refills Start Date End Date Stat Kenalog 40 mg/mL suspension for injection Take 2 mL by injection route. 10/10/2023 11/21/2023 active pantoprazole 20 mg tablet,delayed release TAKE 1 TABLET BY MOUTH DAILY active carvedilol 12.5 mg tablet TAKE 1 TABLET BY MOUTH TWICE DAILY WITH FOOD 10/10/2023 completed ciclopirox 0.77 % topical cream active benzonatate 100 mg capsule TAKE 1 CAPSULE BY MOUTH THREE TIMES DAILY NEEDED FOR COUGH active clopidogrel 75 mg tablet TAKE 1 TABLET BY MOUTH DAILY active sulfasalazine 500 mg tablet TAKE 2 TABLET BY MOUTH TWICE DAILY active clopidogrel 75 mg tablet TAKE 1 TABLET BY MOUTH DAILY 11/13/2023 completed atorvastatin 80 mg tablet TAKE 1 TABLET BY MOUTH DAILY active Kenalog 40 mg/mL suspension for injection active sulfasalazine 500 mg tablet TAKE 2 TABLETS BY MOUTH TWICE DAILY active bupivacaine HCl 0.5 % (5 mg/mL) injection solution Take 2 mL by injection route. 10/10/2023 11/13/2023 completed Problems Problem Status Onset Date Problem Type Date of Resoluti on Source Adhesive capsulitis of left shoulder active 2023-10-10 ProblemAct ENS_AONECT Osteoarthritis of right knee joint active 2023-04-03 ProblemAct E[facility] Impingement syndrome of left shoulder region active 2023-10-10 ProblemAct ENS_AON ECT Tendinitis of left gluteal tendon active 2024-10-14 ProblemAct ENS_[facility]ONECT Osteoarthritis of left glenohumeral joint active 2023-10-10 ProblemAct ENS_AONEC T
== END 2024-12-05 08:46 | disposition home or self-care (01) ==
PROVIDERS: PCP Internal Medicine; Visit Provider Internal Medicine
DX: I25.10 Atherosclerotic heart disease of native coronary artery without angina pectoris (principal)

== ENCOUNTER → 2024-12-05 08:21 | Outpatient (BNVA) | payer MEDICARE, SELFPAY | PROVIDERS: PCP Internal Medicine; Visit Provider Internal Medicine | DX: I25.10 Atherosclerotic heart disease of native coronary artery without angina pectoris (principal) | CPT/HCPCS: 96127; 99212 ==

== ENCOUNTER 2025-01-28 07:09 | Outpatient (REF) | payer MEDICARE, SELFPAY ==
[2025-01-28 07:26] LABS: MANUAL DIFF FLAG NO
[2025-01-28 07:44] LABS: Basophils Absolute Auto 0.1 X10*3/uL (0.0-0.2); Basophils Percent Auto 0.7 % (0-2); Eosinophils Absolute Auto 0.2 X10*3/uL (0.0-0.4); Eosinophils Percent Auto 2.7 % (0-4); Hematocrit 47.5 % (42.0-52.0); Hemoglobin 15.8 g/dl (14.0-18.0); Imm Gran Abs Auto 0.04 X10*3/uL (0.00-0.03); Imm Gran Pct Auto 0.5 % (0.0-0.4); Lymphocytes Absolute Auto 1.9 X10*3/uL (1.2-4.9); Lymphocytes Percent Auto 26.3 % (20-40); Mean Corpuscular HGB Conc 33.3 g/dl (31.0-36.0); Mean Corpuscular Hemoglobin 30.9 pg (27.0-33.0); Mean Platelet Volume 10.1 fL (9.4-12.4); Monocytes Absolute Auto 0.6 X10*3/uL (0.1-1.2); Monocytes Percent Auto 7.7 % (2-11); Neutrophils Absolute Auto 4.5 x10*3/uL (2.0-8.3); Neutrophils Percent Auto 62.1 % (45-73); Platelet Count 172 X10*3/uL (160-400); Red Blood Count 5.11 X10*6/uL (4.60-5.80); Red Cell Distribution Width 13.1 % (11.0-16.0); White Blood Count 7.3 X10*3/uL (4.8-10.8)
[2025-01-28 08:10] LABS: Alanine Aminotransferase 62 U/L (0-40); Albumin Level 4.4 g/dL (3.5-5.0); Alkaline Phosphatase 103 U/L (39-117); Anion Gap 10 (12-20); Aspartate Amino Transferase 40 U/L (5-37); Bilirubin Total 1.4 mg/dL (0.0-1.0); Blood Urea Nitrogen 20 mg/dL (9-16); Calcium 9.3 mg/dL (8.4-10.2); Carbon Dioxide 25 mmol/L (22-29); Chloride 110 mmol/L (96-108); Cholesterol 87 mg/dL (<200); Estimated Glomerular Filt Rate > 60; Glucose Fasting 128 mg/dL (60-99); Glucose Random 128 mg/dL (60-115); HDL Cholesterol 34 mg/dL (>40); LDL Cholesterol Calculated 36 mg/dL (<100); Potassium 4.1 mmol/L (3.3-5.1); Sodium 141 mmol/L (135-145); Total Protein 7.2 g/dL (6.5-8.0); Triglycerides 85 mg/dL (<150)
[2025-01-28 08:26] LABS: Thyroid Stimulating Hormone 1.48 uIU/mL (0.32-4.0)
[2025-01-28 10:09] LABS: Reflex LDLD? No
== END 2025-01-28 07:10 | disposition home or self-care (01) ==
LOC: HO.LAB 07:09
PROVIDERS: Absent Provider Nurse Practitioner Family; PCP Internal Medicine; Visit Provider Internal Medicine
DX: I10 Essential (primary) hypertension (principal); I25.5 Ischemic cardiomyopathy; I25.10 Atherosclerotic heart disease of native coronary artery without angina pectoris; I25.84 Coronary atherosclerosis due to calcified coronary lesion; E78.2 Mixed hyperlipidemia; Z13.9 Encounter for screening, unspecified; Z13.220 Encounter for screening for lipoid disorders; Z13.29 Encounter for screening for other suspected endocrine disorder
CPT/HCPCS: 36415; 80048; 80053; 80061; 83735; 84443; 85025

== ENCOUNTER 2025-04-07 15:22 | Outpatient (AMB) | payer MEDICARE, SELFPAY ==
--- NOTE | 2025-04-07 15:39 | MHC.PC.OV ---
Vital Signs 04/07/25 15:40 Height 5 ft 8.5 in Weight 190 lb 12.8 oz BMI 28.6 BP 104/68 Blood Pressure Location Lt brachial Position Sitting Respiration 18 Pulse 86 Pulse Source Pulse Oximeter Temp 98.8 F Temp Source Oral Pulse Oximetry (%) 96 Oxygen Delivery Method Room Air Intake Visit Reasons: [facility] 03/19 Intake Note: Patient is here for hospital discharge follow up. Patient was discharged from [facility] in [place], [place] on 03/19/2025.. Radio Interference Investigator Required: No Accompanied by: Self / Same As Patient Allergies No Known Allergies Allergy (Unknown, Verified 04/07/25 16:07) Medication List - Last Reconciled 04/07/25 by DAMION Amaya albuterol sulfate 90 mcg/actuation 2 puffs PO DAILY aspirin 81 mg PO DAILY atorvastatin 80 mg PO DAILY carvedilol 25 mg PO BID clopidogrel 1 tab PO DAILY folic acid 1 mg PO DAILY isosorbide mononitrate ER 30 mg PO QAM lisinopril 2.5 mg PO DAILY nitroglycerin 0.5 mg sublingual ONCE PRN pantoprazole 20 mg PO DAILY sulfasalazine 1,000 mg PO BID Tobacco use date assessed: 04/07/25 Fall risk assessment: No Falls in past year Last assessed Fall Risk: 04/07/25 Dental Screening Dental Screen Date: 04/07/25 Did you have a dental visit in the last 12 months?: Yes Did you have a dental problem in the last 6 months where you did not have access to dental care?: No Was dental information given to patient?: Patient declined HPI [facility] 03/19 HPI Details The patient is a 69-year-old male presenting with a follow-up for pancreatitis and gallstone management. He has been diagnosed with acute pancreatitis, attributed to cholelithiasis, leading to significant abdominal pain and inability to eat for five days. The patient has not experienced any prior episodes of gallstones but noted a history of nephrolithiasis. The initial episode of pancreatitis did not require surgical intervention, classified as uncomplicated. The treatment plan focused on reducing infection in the pancreas and monitoring symptoms. The patient is currently on a very low-fat diet, experiencing weight loss which has stabilized, with significant improvement in abdominal pain. There is a scheduled MRI on 05/14/25 and surgical consultation to assess the need for potential future cholecystectomy. Folic acid and sulfasalazine 1000 mg po BID on hold. Denies chest pain, SOB, heart palpitation Abdominal pain 99% better, no change in bowel habits or any urinary symptoms PFSH Medical History Asthma Chronic pain of both feet Screening for prostate cancer Screening for diabetes mellitus Hx of ulcerative colitis Peptic ulcer GERD (gastroesophageal reflux disease) On beta audrey at home On anticoagulant therapy Myocardial infarction CAD (coronary artery disease) HTN (hypertension) Hyperlipidemia Surgical History Hx of cystoscopy Hx of heart artery stent History of esophagogastroduodenoscopy (EGD) H/O colonoscopy History of PTCA Family History Mother No problems noted. Father No problems noted. Social History Housing: House Alcohol intake: never Patient Tobacco Use Status: Never used Tobacco e-Cigarette/Vaping Use: Never Used Second Hand Smoke Exposure: No service: No Current occupational status: retired Cognitive needs: No Hearing needs: No Vision needs: Yes Questionnaire PHQ-9 Over the last 2 weeks, how often have you been bothered by any of the following problems? 1. Little interest or pleasure in doing things: not at all 2. Feeling down, depressed, or hopeless: not at all 3. Trouble falling or staying asleep, or sleeping too much: not at all 4. Feeling tired or having little energy: not at all 5. Poor appetite or overeating: not at all 6. Feeling bad about yourself - or that you are a failure or have let yourself or your family down: not at all 7. Trouble concentrating on things, such as reading the newspaper or watching television: not at all 8. Moving or speaking so slowly that other people could have noticed. Or the opposite - being so fidgety or restless that you have been moving around a lot more than usual: several days 9. Thoughts that you would be better off or of hurting yourself in some way: not at all Total score: 1 Depression Screening Interpretation: Negative Depression Screening Done: Yes Source: Developed by Drs. Aman Forde, Adelina Porter, Tyler Garvey and colleagues, with an educational lorena from [employer]. Thrive Questionnaire Date Thrive assessed: 04/07/25 I am a: Patient What is your living situation today?: I have a steady place to live Within the past 12 months, did the food you bought not last and you didn't have the money to get more?: Never true Within the past 12 months, did you worry whether your food would run out before you got money to buy more?: Never true Do you have trouble paying for medicines?: No Do you have trouble getting transportation to medical appointments?: No Do you have trouble paying your heating and electricity bill?: No Do you have trouble taking care of your child, family member or friend?: No Do you have trouble with day-to-day activities such as bathing, preparing meals, shopping, managing finances, etc.?: No Are you currently unemployed and looking for a job?: No Are you interested in more education?: No Please select the resources that you would like help with: None Currently or been in a relationship where the following occur: No concerns reported THRIVE Score: 0 AUDIT C Alcohol Use Questionnaire (AUDIT-C) 1. How often do you have a drink containing alcohol?: Monthly or less 2. How many drinks containing alcohol do you have on a typical day when you are drinking?: 1 or 2 3. How often do you have six or more drinks on one occasion?: Never Total Score: 1 Score Reviewed/Action Taken: No MANSOOR-7 AMB Questionnaire MANSOOR-7 Date MANSOOR - 7 assessed: 04/07/25 Feeling nervous, anxious, or on edge: 0 = Not at all Not being able to stop or control worryin = Not at all Worrying too much about different things: 0 = Not at all Trouble relaxin = Not at all Being so restless that it is hard to sit still: 0 = Not at all Source: Developed by Drs. Aman Forde, Tyler Naqvi and colleagues, with an educational lorena from [employer]. Review of Systems Const Denies headache(s) Eyes Denies loss of vision ENT Denies vertigo, Denies dizziness, Denies headache(s) and Denies sore throat Card Denies chest pain, Denies leg edema and Denies lightheadedness Resp Denies cough, Denies hemoptysis and Denies wheezing GI Reports abdominal pain (Mostly resolved), Denies melena, Denies constipation, Denies diarrhea and Denies vomiting Denies dysuria, Denies urinary frequency and Denies urinary urgency Neuro Denies vertigo, Denies dizziness, Denies headache(s), Denies loss of vision and Denies memory loss Psych Denies anxiety, Denies depression, Denies memory loss and Denies panic attacks Felipe/Lymph Denies easy bleeding and Denies easy bruising Aller/Immun Denies wheezing Physical exam (Primary Care) Vital Signs: Last Vital Signs Temp 98.8 F 04/07/25 15:40 Pulse 86 04/07/25 15:40 Resp 18 04/07/25 15:40 BP 104/68 04/07/25 15:40 Pulse Ox 96 04/07/25 15:40 Oxygen Delivery Method Room Air 04/07/25 15:40 BMI result Body Mass Index 28.6 Tobacco/Smoking Status: Tobacco use Status Tobacco use date assessed 04/07/25 04/07/25 15:45 Patient Tobacco Use Status Never used Tobacco 04/07/25 15:40 e-Cigarette/Vaping Use Never Used 04/07/25 15:40 PHQ-9: PHQ-9 Score PHQ-9: Total score 1 04/19/25 22:54 Depression Screening Interpretation: Negative Thrive Assessment: Date of Thrive Assessment Date Thrive assessed 04/07/25 04/07/25 15:45 Currently or been in a relationship where the following occur: No concerns reported Const General: healthy appearing, no acute distress, alert and awake Nutritional Appearance: well nourished Orientation/consciousness: oriented to person, oriented to place and oriented to time HENMT Ears: external ears normal General nose exam: Normal external nose present Eyes Conjunctivae: conjunctivae normal Sclerae: sclerae normal Pupils: Equal, round and reactive pupils present Neck Neck: Yes no lymphadenopathy and Yes no JVD Thyroid: Thyroid normal Carotids: no bruits Resp Effort & Inspection: normal respiratory effort and not tachypneic Auscultation: no crackles, no rales, no rhonchi and no wheezes Cardio Rate: regular rate Rhythm: regular rhythm Heart sounds: no murmurs and normal S1 and S2 GI Palpation (GI): Soft to palpation, nontender, no hepatomegaly and no splenomegaly Auscultation: normal bowel sounds Skin General skin exam: no rashes or lesions noted and dry skin Neuro General: oriented to person, oriented to place and oriented to time Cranial nerves: Yes Equal, round and reactive pupils present Gait exam (Neuro): Normal gait present Motor exam (neuro): no tremor noted Extrem Right upper extremity: full ROM Left upper extremity: full ROM Right lower extremity: full ROM; no edema Left lower extremity: full ROM; no edema Psych Mental Status: mental status grossly normal Speech and movement: Normal speech and movement present Affect: normal affect Attitude: cooperative Thought process: Normal thought process present Coding Level of Care Code Est Pt Level 3 (27023) Diagnoses Acute pancreatitis, unspecified complication status, unspecified pancreatitis type K85.90 Chronicity: acute Pancreatitis type: unspecified pancreatitis type Acute pancreatitis complication: unspecified Time Spent (min) 35 Assessment & Plan Assessment & Plan (1) Pancreatitis: Code(s): K85.90 - Acute pancreatitis without necrosis or infection, unspecified Category: Medical Qualifiers: Chronicity: acute Pancreatitis type: unspecified pancreatitis type Acute pancreatitis complication: unspecified Qualified Code(s): K85.90 - Acute pancreatitis without necrosis or infection, unspecified Plan The patient is continuing management for acute pancreatitis and associated cholelithiasis. The current approach includes stringent adherence to a low-fat diet, which has stabilized his weight and improved symptoms, with plans to reassess through a scheduled MRI. A surgical consultation will follow to discuss potential gallbladder removal. Medications sulfazalazine and folic acid have been paused, and the patient will consult with his tub washer for further guidance. Monitoring for recurrence of symptoms is advised, along with active management of cardiovascular risk due to past heart attack history. Patient was informed and verbally consented to the use of an ambient scribe for clinic note documentation during this visit.
[2025-04-07 15:40] VITALS: BP 104/68; PULSE 86; RESP 18; TEMP 37.1; O2SAT 96; BMI 28.6
--- OUTSIDE RECORDS SUMMARY | 2025-04-07 16:50 | XMS_ITS | Patient Health Record ---
Author Organization [facility] Address [address] [place] [address] Care Team Providers Care Clinical Research Associate Name Role Phone Juan J ANDUJAR, Eric Primary Care Provider Mitesh Jaeger Jr Allergies No Known Allergies Results Component Value Reference Range Notes Pathology Reviewed date:05/07/2024 08:43:49 AM Interpretation: Performing Lab:[facility], [address] [place] [id number] Notes/Report: Name: Manuelito Vuong Age/Sex: 68/M : 1955 Unit#: [id number] Attend Dr: Mitesh Pierce MD Re04/29/24 Statu s: [facility] Location: [facility] Disch: SPEC : [id number] RECD : 04/29/24 STATUS: ADRIAN BROOKS NUM: [id number] BESSY: 04/29/24-[address] [facility] [address]: Mitesh Pierce MD ENTERED: 04/29/24-10 12 SP TYPE: Surgical OTHR DR: Eric Arita MD ORDERED: HE Stain/18 , Gross Micro L4/6 Diagnosis A. Colon, cecum, bio psy: Colonic mucosa with lymphoid aggregates and no specific change; no colitis, negative for dysplasia. B. Colon, right, bio psy: Colonic mucosa with lymphoid aggregates and minor crypt distortion, otherwis e no specific change; no colitis, negative for dysplasia. C. Colon, transverse , biopsy: Colonic mucosa with lymphoid aggregates and no specific change; no colitis, negative for dysplasia. D. Colon, left, biop sy: Colonic mucosa with lymphoid aggregates and no specific change; no colitis, negative for dysplasia. E. Colon, sigmoid, b iopsy: Colonic mucosa with lymphoid aggregates and no specific change; no colitis, negative for dysplasia. F. Colon, rectal bio psy: Colonic mucosa with lymphoid aggregate and scattered foamy lamina propria macro phages, otherwise no specific change; no colitis/proctitis, negative for dysplasia. Clinical History Pre-Op Dx: Ulcerativ e (chronic) pancolitis without complication Post-Op Dx: Ulcerative colitis Microscopic Description Microscopic sections reviewed. Material Received A. Cecum bx's B. Right colon biopsies C. Transverse colon bx's D. Left colon bx's E. Sigmoid colon bx's F. Rectal bx's CONTINUED ON NEXT PAGE Name: Manuelito Vuong Age/Sex: 68/M : 1955 Unit#: [id number] Attend Dr: Mitesh Pierce MD Re04/29/24 Status : [facility] Location: [facility] Disch: SPEC : [id number] RECD : 04/29/241147 STATUS: ADRIAN BROOKS NUM: [id number] BESSY: 04/29/24-[address] [facility] [address]: Mitesh Pierce MD ENTERED: 04/29/24- 08 SP TYPE: Surgical OTHR DR: Eric Arita MD ORDERED: HE Stain/18 , Gross Micro L4/6 Gross Description Received in six parts. Part A: Received in formalin labeled ?cecum bx's? are 4 wilkinson irregular tissue fragments ranging from 0.15-0. 2 cm, submitted in toto in a cassette labeled A. Part B: Received in formalin labeled ?right colon bx's? are 4 wilkinson-pink irregular tissue fragments each measu ring 0.2 cm, submitted in toto in a cassette labeled B. Part C: Received in formalin labeled ?transverse colon bx's? are 4 wilkinson irregular tissue fragments each measu ring 0.25 cm, submitted in toto in a cassette labeled C. Part D: Received in formalin labeled ?left colon bx's? are 4 wilkinson irregular and rectangular tissue fragments ran ging from 0.2-0.3 cm, submitted in toto in a cassette labeled D. Part E: Received in formalin labeled ?sigmoid colon bx's? are 5 wilkinson irregular and rectangular tissue f ragments ranging from 0.1-0.4 cm, submitted in toto in a cassette labeled E. Part F: Received in formalin labeled ?rectal bx's? are 4 wilkinson and wilkinson-pink irregular and rectangular tissue f ragments ranging from 0.25-0.45 cm, submitted in toto in a cassette labeled F. CEDS Copies To: Mitesh Pierce MD [facility] [address] [place] [address] Eric Arita MD [address] [place] [address] Signed (si gnature on file) Sindhu [place] 04/30/24 1356 END OF REPORT Reason For Referral No Information Medications Medication SIG (Take, Route, Frequency, Duration) Notes Start Date End Date Status Tylenol PRN Active Lomotil prn Active sulfaSALAzine 500 MG TAKE 2 TABLETS BY M OUTH TWICE DAILY for 90 Active Pantoprazole Sodium 20 MG Orally Active One Daily Adults 50+ Active Lisinopril 20 MG Orally Act sergio Carvedilol 25 MG 1 tablet with food Orally Active Folic Acid 1 MG TAKE 1 TABLET BY LAVELL EVERY DAY for 90 days Active Aspirin Low Dose Act sergio Atorvastatin Calcium 80 MG Orally Active Plavix 75 MG Orally Active Nitroglycerin 0.4 MG Sublingual Active Isosorbide Mononitrate ER 30 MG Orally Active Folic Acid 1 MG 1 tablet Orally Once a day for 90 days Active Immunizations Vaccine Route Administration Date Status Comme nts Influenza Unknown 07/14/2020 Administered Influenza Unknown 08/28/2023 Administered Problems Problem Type SNOMED Code ICD Code Onset Dates Problem Status W/U Status Risk Notes Problem 715137044 Gastroesophageal reflux disease without esophagitis (K21.9) Active confirmed Problem 61093531 Other ulcerative colitis without complication (K51.80) Active confirmed Problem 501609050 Ulcerative pancolitis without complication (K51.00) Active confirmed Problem 22797900 Gastrointestinal hemorrhage, unspecified gastrointestinal hemorrhage type (K92.2) Active confirmed Problem Ulcerative colitis (97952265) Ulcerative colitis (K51.90) Active confirmed Encounters Encounter Location Date Provider Diagnosis [facility] [address] [place], [place] [id number] 04/29/2024 Mitesh Pierce Jr Ulcerative colitis K51.90 [facility] [address] [facility] [address] [place] [phone] 05/07/2024 Mitesh Pierce Jr [facility] [address] [facility] [address] [place] [phone] 01/12/2025 Mitesh Pierce Jr Assessments Encounter Date Diagnosis (ICD Code) Assessment Notes Treatment Notes Treatment Clinical Notes Section Notes 04/29/2024 Ulcerative colitis (ICD-10 - K51.90) Plan Of Treatment Future Test Test Name Order Date COLONOSCOPY 06/03/2014 UPPER GI ENDOSCOPY 08/08/2017 COLONOSCOPY 08/08/2017 COLONOSCOPY 12/13/2020 COLONOSCOPY 03/19/2024 Next Appt Details Provider Name:Mitesh amato Jr, 04/27/2025 09:00:00 AM, [address] [place] [address], Suite [facility], [place], [address], Insurance Providers Payer Name Payer Address Payer Phone Subscriber Number Group Number Insured Name Patient Relationship to Insured Coverage Start Date Coverage End Date MEDICARE OF [place] [address] [place] [address] [id number] AGUSTINAMANUELITO BANUELOS Self - patient is the insured [employer] ATT[employer] CLAIMS [address] [place] [address] [id number] AGUSTINAMANUELITO BANUELOS Self - patient is the insured Medical (General) History Medical History History ICD Code peptic ulcer disease with upper GI bleed /EGD 2005 kidney stones hypertension ulcerative colitis diagnosed in 20s, current treatment sulfasalazine and folic acid. Colonoscopy reassess , active disease in the rectosigmoid, focal mildly active in the cecum and right colon. coronary artery disease with history of STEMI with VT/VF arrest and stent placement. 2018 Surgical History Surgery Date(Month/Year) cardiac catheterization/PCI 2018
== END 2025-04-07 16:44 | disposition home or self-care (01) ==
LOC: HO.HMCH 15:23
PROVIDERS: PCP Internal Medicine
DX: K85.90 Acute pancreatitis without necrosis or infection, unspecified (principal)

== ENCOUNTER → 2025-04-07 15:22 | Outpatient (BNVA) | payer MEDICARE, SELFPAY | PROVIDERS: PCP Internal Medicine | DX: K85.90 Acute pancreatitis without necrosis or infection, unspecified (principal) | CPT/HCPCS: 99212 ==

== ENCOUNTER 2025-06-03 07:44 | Outpatient (AMB) | payer MEDICARE, SELFPAY ==
--- OUTSIDE RECORDS SUMMARY | 2025-06-03 07:48 | XMS_ITS ---
Author Name [facility] Organization Unknown History of Medication Use Medication Directions Dispensed Refills Start Date End Date Stat Marcaine (PF) 0.5 % (5 mg/mL) injection solution Take 4 mL by injection route. 02/03/2025 active triamcinolone acetonide 40 mg/mL suspension for injection Take 40 mg by injection route. 02/03/2025 active Kenalog 40 mg/mL suspension for injection Take 2 mL by injection route. 10/10/2023 11/21/2023 active bupivacaine HCl 0.5 % (5 mg/mL) injection solution Take 2 mL by injection route. 10/10/2023 11/13/2023 completed clopidogrel 75 mg tablet TAKE 1 TABLET BY MOUTH DAILY 11/13/2023 completed carvedilol 12.5 mg tablet TAKE 1 TABLET BY MOUTH TWICE DAILY WITH FOOD 10/10/2023 completed Kenalog 40 mg/mL suspension for injection active atorvastatin 80 mg tablet TAKE 1 TABLET BY MOUTH DAILY active benzonatate 100 mg capsule TAKE 1 CAPSULE BY MOUTH THREE TIMES DAILY NEEDED FOR COUGH active ciclopirox 0.77 % topical cream active clopidogrel 75 mg tablet TAKE 1 TABLET BY MOUTH DAILY active pantoprazole 20 mg tablet,delayed release TAKE 1 TABLET BY MOUTH DAILY active sulfasalazine 500 mg tablet TAKE 2 TABLETS BY MOUTH TWICE DAILY active sulfasalazine 500 mg tablet TAKE 2 TABLET BY MOUTH TWICE DAILY active Problems Problem Status Onset Date Problem Type Date of Resoluti on Source Osteoarthritis of left glenohumeral joint active 2023-10-10 ProblemAct [facility] T Tendinitis of left gluteal tendon active 2024-10-14 ProblemAct [facility] Adhesive capsulitis of left shoulder active 2023-10-10 ProblemAct [facility] Osteoarthritis of right knee joint active 2023-04-03 ProblemAct [facility] Impingement syndrome of left shoulder region active 2023-10-10 ProblemAct [facility] Encounters Encounter Type Encounter Reason Primary Diagnosis Location Date Ambulatory [facility] 02/03/2025 Amb[facility] 12/01/2024 Ambulatory [facility] 10/14/2024 Ambulatory [facility] 10/14/2024 [facility] 10/17/2023 Ambulatory [facility] 10/10/2023 [facility] 10/10/2023 [facility] 10/09/2023 [facility] 10/09/2023 [facility] 09/04/2023 [facility] 09[facility]04/2023 [facility] 09/04/2023 [facility] 09/03/2023 [facility] 09/03/2023 [facility]ulatory [facility] 04/03/2023 [facility] 03/19/2023 [facility] 03/19/2023
--- OUTSIDE RECORDS SUMMARY | 2025-06-03 07:48 | XMS_ITS | Patient Health Record ---
Author Organization [facility] Address [address] [place] [address] Care Team Providers Care Heel Seat Laster Name Role Phone Maci Overton Primary Care Provider UnavailMitesh Kamara Jr Unavailable Allergies No Known Allergies Reason For Referral No Information Medications Medication SIG (Take, Route, Frequency, Duration) Notes Start Date End Date Status One Daily Adults 50+ Active Carvedilol 25 MG 1 tablet with food Orally Active Isosorbide Mononitrate ER 30 MG Orally Active Atorvastatin Calcium 80 MG Orally Active Plavix 75 MG Orally Active Pantoprazole Sodium 20 MG Orally Active Aspirin Low Dose Act sergio Lisinopril 2.5 MG 1 tablet Orally Once a day Active Nitroglycerin 0.4 MG Sublingual Active Immunizations Vaccine Route Administration Date Status Comme nts Influenza Unknown 07/14/2020 Administered Influenza Unknown 08/28/2023 Administered Influenza Unknown 08/26/2024 Administered Problems Problem Type SNOMED Code ICD Code Onset Dates Problem Status W/U Status Risk Notes Problem 514741587 Gastroesophageal reflux disease without esophagitis (K21.9) Active confirmed Problem 94057493 Other ulcerative colitis without complication (K51.80) Active confirmed Problem 276533823 Ulcerative pancolitis without complication (K51.00) Active confirmed Problem 86223465 Gastrointestinal hemorrhage, unspecified gastrointestinal hemorrhage type (K92.2) Active confirmed Problem Ulcerative colitis (34523591) Ulcerative colitis (K51.90) Active confirmed Problem Pancreatitis (82364619) Pancreatitis (K85.90) Active confirmed Vital Signs Temperature 97.9 degrees Fahrenheit 04/27/2025 Blood pressure diastolic 01 mm Hg 04/27/2025 Height 68.25 in 04/27/2025 Blood pressure systolic 001 mm Hg 04/27/2025 Weight 185 lbs 04/27/2025 BMI 27.92 kg/m2 04/27/2025 Encounters Encounter Location Date Provider Diagnosis [facility] [address] [place] [address] 04/27/2025 Mitesh Pierce Jr Other ulcerative colitis without complication K51.80 ; Gastroesophageal reflux disease without esophagitis K21.9 and Pancreatitis K85.90 [facility] [address] [place] [address] 01/12/2025 Mitesh Pierce Jr Assessments Encounter Date Diagnosis (ICD Code) Assessment Notes Treatment Notes Treatment Clinical Notes Section Notes 04/27/2025 Gastroesophageal reflux disease without esophagitis (ICD-10 - K21.9) We reviewed his outside records today. We extensively discussed gallstone pancreatitis. He has appropriate follow-up scheduled for his abnormal CT/MRI of the pancreas and we asked the copy be sent to us for review. We recommend that he continue pantoprazole for his reflux. We will see him in follow-up in 6 months. We will review his MRI as it becomes available. We talked about a low-fat diet today. Staying off sulfasalazine does have some risks of reexacerbation of his colitis, and we discussed this as well. We will remain off this medication for the time being. Follow-up will be as above. Today's visit was 40 minutes. 04/27/2025 Other ulcerative colitis without complication (ICD-10 - K51.80) We reviewed hi s outside records today. We extensively discussed gallstone pancreatitis. He has appropriate follow-up scheduled for his abnormal CT/MRI of the pancreas and we asked the copy be sent to us for review. We recommend that he continue pantoprazole for his reflux. We will see him in follow-up in 6 months. We will review his MRI as it becomes available. We talked about a low-fat diet today. Staying off sulfasalazine does have some risks of reexacerbation of his colitis, and we discussed this as well. We will remain off this medication for the time being. Follow-up will be as above. Today's visit was 40 minutes. 04/27/2025 Pancreatitis (ICD-10 - K85.90) We reviewed hi s outside records today. We extensively discussed gallstone pancreatitis. He has appropriate follow-up scheduled for his abnormal CT/MRI of the pancreas and we asked the copy be sent to us for review. We recommend that he continue pantoprazole for his reflux. We will see him in follow-up in 6 months. We will review his MRI as it becomes available. We talked about a low-fat diet today. Staying off sulfasalazine does have some risks of reexacerbation of his colitis, and we discussed this as well. We will remain off this medication for the time being. Follow-up will be as above. Today's visit was 40 minutes. Plan Of Treatment Future Test Test Name Order Date COLONOSCOPY 06/03/2014 UPPER GI ENDOSCOPY 08/08/2017 COLONOSCOPY 08/08/2017 COLONOSCOPY 12/13/2020 COLONOSCOPY 03/19/2024 Next Appt Details Provider Name:Mitesh amato Jr, 11/25/2025 09:40:00 AM, [address] [place] [address], [address], [place], [address], Insurance Providers Payer Name Payer Address Payer Phone Subscriber Number Group Number Insured Name Patient Relationship to Insured Coverage Start Date Coverage End Date MEDICARE OF [place] [address] [facility] [place] [address] [id number] MANUELITO VUONG Self - patient is the insured MED[employer] ATTN CLAIMS [address] [place] [address] [id number] MANUELITO VUONG Self - patient is the insured Medical (General) History Medical History History ICD Code peptic ulcer disease with upper GI bleed /EGD 2005 kidney stones hypertension ulcerative colitis diagnosed in 20s, current treatment sulfasalazine and folic acid. Colonoscopy reassess 2020, active disease in the rectosigmoid, focal mildly active in the cecum and right colon.Colonoscopy 04/29/2024, normal, biopsies showing no active colitis. Sulfasalazine stopped 03/29 no problems with recurrent symptoms, plan is to stay off medication as tolerated. coronary artery disease with history of STEMI with VT/VF arrest and stent placement. 2018 pancreatitis Surgical History Surgery Date(Month/Year) cardiac catheterization/PCI 2017 Hospitalization History Reason Date(Month/Year) pancreatitis 2024
--- OUTSIDE RECORDS SUMMARY | 2025-06-03 07:48 | XMS_ITS | Clinical Summary ---
Author Organization [facility] Address [address] [id number] Care Team Providers Care Intraoperative Neuro Tech Name Role Phone Eric Arita MD Primary Care Provider [phone] Allergies No known active allergies Medications Medication Sig Dispensed Refills Start Date End Date Status aspirin 81 MG EC tablet Take 81 mg by mouth. 0 06/17/2018 Active atorvastatin (LIPITOR) tablet 80 mg Take 80 mg by mouth. 0 06/17/2018 Active carvedilol (COREG) 12.5 MG tablet TAKE 1 TABLET BY MOUTH TWICE A DAY WITH FOOD 0 09/07/2021 Active isosorbide mononitrate (IMDUR) 30 MG 24 hr tablet Take 1 tablet by mouth every morning. 0 01/25/2021 Active lisinopril (PRINIVIL,ZESTRIL) tablet 20 mg Take 1 tablet by mouth daily. 0 11/07/2021 Active clopidogrel (PLAVIX) 75 MG tablet Take 1 tablet by mouth daily. 0 02/15/2021 Active nitroglycerin (NITROSTAT) 0.[address] 0.4 mg under the tongue. 0 06/17/2018 Active pantoprazole (PROTONIX) 20 MG tablet Take 20 mg by mouth daily. 0 10/30/2021 Active ezetimibe (ZETIA) tablet 10 mg Take 10 mg by mouth. 0 09/23/2018 Active sulfaSALAzine (AZULFIDINE) 500 MG tablet Take 1,000 mg by mouth 2 (two) times a day. 0 01/15/2022 Active folic acid (FOLVITE) tablet 1 mg Take 1,000 mcg by mouth daily. 0 12/12/2021 Active Active Problems Problem Noted Date Diagnosed Date Arthritis of knee, right 02/15/2022 Social History Tobacco Use Types Packs/Day Years Used Date Smoking Tobacco: Never Smokeless Tobacco: Never Alcohol Use Standard Drinks/Week Comments Not Currently 0 (1 standard drink = 0.6 oz pur e alcohol) Sex and Gender Information Value Date Recorded Sex Assigned at Not on file Gender Identity Not on file Sexual Orientation Not on file Job Start Date Occupation Industry Not on file Not on file Not on file Last Filed Vital Signs Vital Sign Reading Time Taken Comments Blood Pressure - - Pulse - - Temperature - - Respiratory Rate - - Oxygen Saturation - - Inhaled Oxygen Concentration - - Weight 92.5 kg (204 lb) 02/15/2022 8:30 AM EDT Height 175.3 cm (5' 9 ) 02/15/2022 8:30 AM EDT Body Mass Index 30.13 02/15/2022 8:30 AM EDT Plan of Treatment Health Maintenance Due Date Last Done Comments Hepatitis C Screening 1955 COVID-19 Vaccine (#1) 02/23/1956 Depression Screening 1966 BMI Counseling 1972 Preventative Health Evaluation 1972 DTap / Tdap / Td (1 - Tdap) 1973 Colon Cancer Screening (Colonoscopy) 1999 Shingrix-Zoster Vaccine (1 of 2) 2004 Fall Risk Assessment 2019 Pneumococcal Vaccine (2 of 2 - PCV) 2019 06/16/2018 Influenza Vaccine (#1) 2025 RSV Adult > 60+ Yrs or Pregn ant (1 - 1-dose 75+ series) 2029 Hepatitis B Vaccines Aged Out No long er eligible based on patient's age to complete this topic RSV Ped < 20 months Aged Out No longe r eligible based on patient's age to complete this topic Care Teams Intraoperative Neuro Tech Relationship Specialty Start Date End Date Eric Arita MD [address] [place] [address] Dr Ju [place] [phone] PCP - General Internal Medicine 11/14/21
--- OUTSIDE RECORDS SUMMARY | 2025-06-03 07:48 | XMS_ITS | Clinical Summary ---
Author Organization [address] [place] [address] Address [address] [place] [address] Phone Care Team Providers Care Body Sander Name Role Phone Eric Arita MD Primary Care Provider [phone] Allergies No known active allergies Medications isosorbide mononitrate (IMDUR) 30 mg 24 hr tablet Take 1 tablet (30 mg total) by mouth 1 (one) time each day. 4 Active nitroglycerin (NITROSTAT) 0.4 mg SL tablet DISSOLVE 1 TABLET UNDER THE TONGUE EVERY 5 MINUTES NEEDED FOR CHEST PAIN. MAX OF 3 DOSES. WHEN TAKING THIRD DOSE, CALL 911 4 Active pantoprazole (PROTONIX) 20 mg EC tablet Take 20 mg by mouth daily. Active ASPIRIN ORAL Take 1 Tablet by mouth daily. Active atorvastatin (LIPITOR) 80 mg tablet Take 80 mg by mouth daily. Active clopidogreL (PLAVIX) 75 mg tablet TAKE 1 TABLET BY MOUTH DAILY 90 tablet 1 5 Active carvediloL (COREG) 25 mg tablet TAKE 1 TABLET BY MOUTH TWICE DAILY WITH MEALS 180 tablet 1 5 Active lisinopriL (PRINIVIL,ZESTRI L) 2.5 mg tablet TAKE 1 TABLET BY MOUTH DAILY 90 tablet 1 5 Active Active Problems Problem Noted Date Diagnosed Date PAREDES (dyspnea on exertion) 12/11/2024 Assessment & Plan (12/11/2024 2:14 PM EST): As above; at baseline. The patient is aware to notify our office for any worsening symptoms, seeking urgent medical attention as appropriate. Orders: Transthoracic echocardiogram (TTE) complete with PRN contrast, bubble, strain, and 3D order panel; Future Aortic dilatation ([facility] V24) 12/11/2024 Assessment & Plan (12/11/2024 2:14 PM EST): Last echocardiogram completed in 2021 showed the ascending aorta dilated at 4.1 cm; we will update an echocardiogram for reevaluation of this and continue to readdress as needed. Blood pressure remains well-controlled. Orders: Transthoracic echocardiogram (TTE) complete with PRN contrast, bubble, strain, and 3D order panel; Future Chest pain 05/29/2023 Ischemic cardiomyopathy 11/23/2021 Overview [...] feeling. He has a trip planned to [place] in [place] around 08 May and was somewhat hesitant [...] office or seek medical attention if necessary. Assessment & Plan (12/11/2024 2:14 PM EST): EF previously as low as 35 to 40% status post STEMI in 06/2018 with eventual normalization. The patient offers no symptoms concerning for overt heart failure or underlying ischemia and appears euvolemic on exam today. He does report mild exertional shortness of breath but states that it has been stable for many years. He is otherwise able to exert himself well without any concerning symptoms. We are updating an echocardiogram for review evaluation of his aortic dilatation as below; we will readdress any needs related to his cardiomyopathy as indicated. I've asked the patient to call if they develop worsening symptoms of heart failure such as increased shortness of breath, new or worsening cough, increased swelling in the legs or ankles, or weight gain of more than 2 pounds in one day or 4 pounds in one week. Orders: Transthoracic echocardiogram (TTE) complete with PRN contrast, bubble, strain, and 3D order panel; Future Lipid panel with reflex to direct LDL; Future Essential hypertension 05/12/2021 Overview (10/31/2024): Last Assessment & Plan: Runs on the low side of normal, today 100/60, he has no symptoms of lightheaded/dizziness. We talked about hydrating well. For now he will continue to monitor his symptoms, should he develop any lightheadedness/dizziness we would decrease his lisinopril. Assessment & Plan (12/11/2024 2:14 PM EST): Blood pressure is well-controlled on current medical therapy; continue carvedilol, lisinopril, and isosorbide. We will update labs today. 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 Continue ASA, Plavix, BB, LINN, statin. Assessment & Plan (12/11/2024 2:14 PM EST): The patient had previous stenting of the LAD status post STEMI in June 2018; residual disease was not felt to be amenable to mechanical revascularization and has been managed medically. As above, the patient offers no symptoms concerning for underlying ischemia; he is able to remain active on a regular basis without any significant exertional symptoms. Shortness of breath with exertion has been stable over the course of several years. We will continue his cardioprotective medical therapies including carvedilol, isosorbide, atorvastatin, and DAPT with clopidogrel and aspirin. The patient was advised to seek emergent medical attention by calling 911 if they were to develop severe dyspnea, chest pain that did not resolve with rest or nitroglycerin, or if they were to faint. Orders: Lipid panel with reflex to direct LDL; Future Mixed hyperlipidemia 11/04/2020 Overview (10/31/2024): Last Assessment & Plan: No recent lipid panel, goal LDL is less than 70. We will ask him to obtain fasting labs. Continue statin. Assessment & Plan (12/11/2024 2:14 PM EST): No recent lipid panel on file; we will update this today. LDL goal for this patient was a history of coronary artery disease is less than 70. Continue atorvastatin 80 mg daily and we will readdress this as needed. Orders: Lipid panel with reflex to direct LDL; Future Old NH (myocardial infarction) 11/04/2020 Assessment & Plan (12/11/2024 2:14 PM EST): Medical History Medical History Date Comments Essential [...] Recorded Sex Assigned at Not on file Legal Sex Male 11:22 AM EST Gender Identity Not on file Sexual Orientation Not on file Obstetrics History Last Filed Vital Signs Vital Sign Reading Time Taken Comments Blood Pressure 120/70 12/11/2024 1:06 PM EST Pulse 67 12/11/2024 1:06 PM EST Temperature - - Respiratory Rate - - Oxygen Saturation 95% 12/11/2024 1:06 PM EST Inhaled Oxygen Concentration - - Weight 98 kg (216 lb) 12/11/2024 1:06 PM EST Height 172.7 cm (5' 8 ) 12/11/2024 1:06 PM EST Body Mass Index 32.84 12/11/2024 1:06 PM EST Plan of Treatment Health Maintenance Due Date Last Done Comments Zoster Vaccines (1 of 2) 2004 Pneumococcal Vaccine: 50+ Years (2 of 2 - PCV) 05/11/2022 05/11/2021, 06/16/2018 Colorectal Cancer Screening: Colonoscopy 10/13/2022 Falls Risk Assessment 10/13/2022 Hepatitis C Screening 10/13/2022 Medicare Annual Wellness Visit 10/13/2022 Social Influencers of Health Screening 10/13/2022 Hypertension/CHF/CAD Annual BMP Blood Test 06/06/2023 06/06/2022 Depression Screening 11/05/2024 COVID-19 Vaccine (8 - Pfizer risk season) 2025 08/05/2024, 09/19/2023, 09/18/2022, Additional history exists Influenza Vaccine (#1) 2025 , 09/19/2023, 09/18/2022, Additional history exists DTaP,Tdap,and Td Vaccines (2 - Td or Tdap) 04/25/2027 04/25/2017 Cholesterol Screening (Lipid Panel) 06/06/2027 06/06/2022 RSV Immunization Adult Patients (1 - 1-dose 75+ series) 2029 HIB Vaccines Aged Out No longer eligi [...] patient's age to complete this topic Meningococcal B Vaccine Aged Out No l onger eligible based on patient's age to complete this topic RSV Immunization Patients Under 20 months Aged Out No longer eligible based on [...] Results * Annual BMP Blood Test (06/06/2022) Annual BMP Blood Test abstracted Historical Provider HEALTH MAINTENANCE Final Result * (ABNORMAL) Lipid panel (06/06/2022) LDL/HDL Ratio 3 0 - 4 Triglycerides 85 0 - 150 mg/dL Cholesterol 91 0 - 200 mg/dL HDL 31(A) >=40 mg/dL LDL Cholesterol 43 0 - 100 mg/dL Blood Venous blood specimen / Unknown Historical Provider LAB BLOOD ORDERABLES Elizabeth l Result from Last 3 Months or Most Recently Relevant to Health Maintenance Insurance MEDICARE [facility] Care Teams Body Sander Relationship Specialty Start Date End Date Eric Arita MD [address] [place] [address] [address] [place] [address] PCP - General Internal Medicine 10/06/20
--- OUTSIDE RECORDS SUMMARY | 2025-06-03 07:48 | XMS_ITS | Patient Health Record ---
Author Organization [facility] Address [address] [place] [address] Care Team Providers Care Operational Meteorologist Name Role Phone Juan J ANDUJAR, Eric Primary Care Provider Unavaila Ranulfo Bourne Unavailable [phone] Reason For Referral No Information Medications Medication SIG (Take, Route, Fr equency, Duration) Notes Start Date End Date Status Omeprazole Active sulfaSALAzine Active Diphenoxylate-Atropine Active Folic Acid Active Social History Tobacco use other than smoking: Question Answer Notes Are you an other tobacco user? No Problems Problem Type SNOMED Code ICD Code Onset Dates Problem Status W/U Status Risk Notes Problem Metatarsalgi a, right foot (M77.41) Active confirmed Plan Of Treatment No Information Insurance Providers Payer Name Payer Address Payer Phone Subscriber Number Group Number Insured Name Patient Relationship to Insured Coverage Start Date Coverage End Date [facility] [address] [place] [address] [phone] [id number] [phone] [id number] [employer] Self - patient is the insured Medical (General) History Medical History History ICD Code Crohns disease Stomach ulcer asthma Reflux ( GERD) Gout Seasonal allergies Hypertension Surgical History Surgery Date(Month/Year) polypectomy
[2025-06-03 08:06] VITALS: BP 102/70; BMI 27.7
--- NOTE | 2025-06-03 08:06 | MHC.PC.OV ---
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 Required: No Accompanied by: Self / Same As Patient Allergies No Known Allergies Allergy (Unknown, Verified 06/03/25 08:40) Medication List - Last Reconciled 06/03/25 by Maci Cadena MD albuterol sulfate 90 mcg/actuation 2 puffs PO DAILY aspirin 81 mg PO DAILY atorvastatin 80 mg PO DAILY carvedilol 25 mg PO BID clopidogrel 1 tab PO DAILY folic acid 1 mg PO DAILY isosorbide mononitrate ER 30 mg PO QAM lisinopril 2.5 mg PO DAILY nitroglycerin 0.5 mg sublingual ONCE PRN pantoprazole 20 mg PO DAILY sulfasalazine 1,000 mg PO BID Tobacco use date assessed: 04/07/25 Dental Screening Dental Screen Date: 04/07/25 HPI HPI Comments History of Present Illness Details The patient is a 69-year-old male presenting for transfer of care. The patient has a history of impaired glucose tolerance, with a fasting glucose level of 128 mg/dL noted in January. He denies experiencing polyuria or polydipsia. He has experienced pancreatitis, attributed to cholelithiasis, which led to a weight loss of 20 pounds. The patient is under the care of a motor assembler and has met with a surgeon for an elective cholecystectomy planned for the fall. The patient has a history of ulcerative colitis, previously managed with sulfasalazine, which was discontinued after a normal colonoscopy in April 2024 showed no signs of colitis. He also has a history of coronary artery disease, having suffered a STEMI and cardiac arrest, followed by stent placement and PCI in 2017. He is currently on aspirin and clopidogrel and follows up with cardiology. The patient has hyperlipidemia, which is well-controlled with statin therapy. He also has impaired glucose tolerance but denies any polyuria or polydipsia. [facility] Medical History (Updated 06/03/25 @ 09:15 by Maci Cadena MD) Asthma Chronic pain of both feet Screening for prostate cancer Screening for diabetes mellitus Hx of ulcerative colitis Peptic ulcer GERD (gastroesophageal reflux disease) On beta audrey at home On anticoagulant therapy Myocardial infarction CAD (coronary artery disease) HTN (hypertension) Hyperlipidemia Surgical History Hx of cystoscopy Hx of heart artery stent History of esophagogastroduodenoscopy (EGD) H/O colonoscopy History of PTCA Family History Mother No problems noted. Father No problems noted. Social History (Updated 06/03/25 @ 08:44 by Maci Cadena MD) Housing: House Alcohol intake: current Alcohol intake frequency: a few times a month Alcohol type: beer and hard liquor Patient Tobacco Use Status: Never used Tobacco e-Cigarette/Vaping Use: Never Used Second Hand Smoke Exposure: No service: No Current occupational status: retired Cognitive needs: No Hearing needs: No Vision needs: Yes Questionnaire Thrive Questionnaire Date Thrive assessed: 04/07/25 I am a: Patient What is your living situation today?: I have a steady place to live Within the past 12 months, did the food you bought not last and you didn't have the money to get more?: Never true Within the past 12 months, did you worry whether your food would run out before you got money to buy more?: Never true Do you have trouble paying for medicines?: No Do you have trouble getting transportation to medical appointments?: No Do you have trouble paying your heating and electricity bill?: No Do you have trouble taking care of your child, family member or friend?: No Do you have trouble with day-to-day activities such as bathing, preparing meals, shopping, managing finances, etc.?: No Are you currently unemployed and looking for a job?: No Are you interested in more education?: No Please select the resources that you would like help with: None Currently or been in a relationship where the following occur: No concerns reported THRIVE Score: 0 MANSOOR-7 AMB Questionnaire MANSOOR-7 Date MANSOOR - 7 assessed: 04/07/25 Source: Developed by Drs. Aman Forde, Adelina Porter, Tyler Garvey and colleagues, with an educational lorena from [employer]. Review of Systems Const All systems reviewed & are unremarkable except as noted in HPI and below Card Denies chest pain at rest, Denies chest pain with activity, Denies edema, Denies irregular heart rhythm, Denies claudication, Denies dyspnea, Denies dyspnea on exertion, Denies orthopnea, Denies paroxysmal nocturnal dyspnea and Denies slow heart rate Resp Denies cough, Denies dyspnea and Denies dyspnea on exertion GI Denies abdominal pain, Denies change in bowel habits, Denies excessive flatus, Denies nausea and Denies vomiting Denies urinary hesitancy, Denies urinary incontinence and Denies urinary urgency Musc Denies abnormal gait, Denies atrophy, Denies deformity and Denies limited range of motion Skin/Breast Denies bleeding lesions, Denies changing lesions and Denies rash Neuro Denies abnormal gait and Denies lack of coordination Physical exam (Primary Care) Vital Signs: Last Vital Signs BP 102/70 06/03/25 08:06 BMI result Body Mass Index 27.7 Tobacco/Smoking Status: Tobacco use Status Tobacco use date assessed 04/07/25 06/03/25 08:09 Patient Tobacco Use Status Never used Tobacco 06/03/25 08:09 e-Cigarette/Vaping Use Never Used 06/03/25 08:09 Thrive Assessment: Date of Thrive Assessment Date Thrive assessed 04/07/25 06/03/25 08:09 Currently or been in a relationship where the following occur: No concerns reported Resp Effort & Inspection: normal respiratory effort Auscultation: clear to auscultation bilaterally Cardio Jugular venous distension: no JVD Rate: regular rate Rhythm: regular rhythm Heart sounds: S1 normal heart sound present and S2 normal heart sound present Extrem General: Yes full ROM Coding Level of Care Code Est Pt Level 4 (91760) Complex EM visit Add On G2211 Diagnoses Other ulcerative colitis without complication K51.80 Ulcerative colitis location: other ulcerative colitis Primary hypertension I10 Hypertension type: primary hypertension Hyperlipidemia, unspecified hyperlipidemia type E78.5 Hyperlipidemia type: unspecified Coronary artery disease involving [place] coronary artery of [place] heart without angina pectoris I25.10 Coronary Disease-Associated Artery/Lesion type: [place] artery [place] vs. transplanted heart: [place] heart Associated angina: without angina Impaired glucose tolerance R73.02 Time Spent (min) 22 Assessment & Plan Assessment & Plan (1) Ulcerative colitis without complications: Code(s): K51.90 - Ulcerative colitis, unspecified, without complications Category: Medical Qualifiers: Ulcerative colitis location: other ulcerative colitis Qualified Code(s): K51.80 - Other ulcerative colitis without complications (2) Hypertension: Code(s): I10 - Essential (primary) hypertension Category: Medical Qualifiers: Hypertension type: primary hypertension Qualified Code(s): I10 - Essential (primary) hypertension (3) Hyperlipidemia: Code(s): E78.5 - Hyperlipidemia, unspecified Category: Medical Qualifiers: Hyperlipidemia type: unspecified Qualified Code(s): E78.5 - Hyperlipidemia, unspecified (4) CAD (coronary artery disease): Code(s): I25.10 - Atherosclerotic heart disease of [place] coronary artery without angina pectoris Category: Medical Qualifiers: Coronary Disease-Associated Artery/Lesion type: [place] artery [place] vs. transplanted heart: [place] heart Associated angina: without angina Qualified Code(s): I25.10 - Atherosclerotic heart disease of [place] coronary artery without angina pectoris (5) Impaired glucose tolerance: Code(s): R73.02 - Impaired glucose tolerance (oral) Category: Medical Plan The patient will continue to monitor his glucose levels and maintain a diet suitable for managing impaired glucose tolerance. He will proceed with the planned elective cholecystectomy in the fall to address the cholelithiasis causing pancreatitis. The patient will continue his current regimen of aspirin and clopidogrel for coronary artery disease and maintain regular follow-ups with his hot packer. His hyperlipidemia will continue to be managed with statin therapy. Orders: Orders Comprehensive [place]. Panel Fast Today R73.02 - Impaired glucose tolerance (oral) Lipid Panel Today E78.5 - Hyperlipidemia, unspecified
== END 2025-06-03 08:56 | disposition home or self-care (01) ==
LOC: HO.HMCH 07:45
PROVIDERS: PCP Internal Medicine; Visit Provider Internal Medicine
DX: K51.80 Other ulcerative colitis without complications (principal); I10 Essential (primary) hypertension; E78.5 Hyperlipidemia, unspecified; I25.10 Atherosclerotic heart disease of native coronary artery without angina pectoris; R73.02 Impaired glucose tolerance (oral)

== ENCOUNTER → 2025-06-03 07:44 | Outpatient (BNVA) | payer MEDICARE, SELFPAY | PROVIDERS: PCP Internal Medicine; Visit Provider Internal Medicine | DX: K51.80 Other ulcerative colitis without complications (principal); I10 Essential (primary) hypertension; E78.5 Hyperlipidemia, unspecified; I25.10 Atherosclerotic heart disease of native coronary artery without angina pectoris; R73.02 Impaired glucose tolerance (oral) | CPT/HCPCS: 99212 ==